=== PATIENT | male | born 1935 | race Caucasian/White ===

== ENCOUNTER 2019-11-01 07:42 | Outpatient (CLI) | payer MEDICARE, OTHER, SELFPAY ==
[2019-11-01 08:43] LABS: Blood Urea Nitrogen 26 mg/dL (9-20); Calcium 9.2 mg/dL (8.4-10.2); Carbon Dioxide 27 mmol/L (22-30); Chloride 95 mmol/L (98-107); Estimated Glomerular Filt Rate > 60; Glucose 329 mg/dL (75-110); Potassium 5.1 mmol/L (3.4-5.0); Sodium 133 mmol/L (137-145)
== END 2019-11-01 07:43 | disposition home or self-care (01) ==
PROVIDERS: PCP Internal Medicine; Visit Provider Internal Medicine Cardiovascular Disease
DX: Z79.899 Other long term (current) drug therapy (principal)
CPT/HCPCS: 36415; 80048

== ENCOUNTER 2019-11-08 07:51 | Outpatient (CLI) | payer MEDICARE, OTHER, SELFPAY ==
[2019-11-08 08:33] LABS: Blood Urea Nitrogen 23 mg/dL (9-20); Calcium 9.6 mg/dL (8.4-10.2); Carbon Dioxide 28 mmol/L (22-30); Chloride 97 mmol/L (98-107); Estimated Glomerular Filt Rate > 60; Glucose 79 mg/dL (75-110); Potassium 4.3 mmol/L (3.4-5.0); Sodium 134 mmol/L (137-145)
== END 2019-11-08 07:52 | disposition home or self-care (01) ==
PROVIDERS: PCP Internal Medicine; Visit Provider Internal Medicine Cardiovascular Disease
DX: I10 Essential (primary) hypertension (principal)
CPT/HCPCS: 36415; 80048

== ENCOUNTER 2020-02-01 10:43 | Outpatient (CLI) | payer MEDICARE, OTHER, SELFPAY ==
[2020-02-01 11:17] LABS: Potassium 4.5 mmol/L (3.4-5.0)
[2020-02-01 11:37] LABS: Blood Urea Nitrogen 24 mg/dL (9-20); Calcium 9.4 mg/dL (8.4-10.2); Carbon Dioxide 29 mmol/L (22-30); Chloride 103 mmol/L (98-107); Estimated Glomerular Filt Rate > 60; Glucose 70 mg/dL (75-110); Sodium 139 mmol/L (137-145)
== END 2020-02-01 10:44 | disposition home or self-care (01) ==
PROVIDERS: PCP Internal Medicine; Visit Provider Internal Medicine Cardiovascular Disease
DX: I44.2 Atrioventricular block, complete (principal)
CPT/HCPCS: 36415; 80048

== ENCOUNTER 2020-09-16 00:38 | Emergency (ER) | payer MEDICARE, OTHER, SELFPAY ==
--- NOTE | ~2020-09-16 | XR_ITS ---
EXAMINATION: XR chest 1V portable DATE: 09/16/2020 01:40 INDICATION: PICC line placement TECHNIQUE: frontal view of the chest was obtained. COMPARISON: Chest radiograph and CT dated 02/16/2018 FINDINGS: Right internal jugular central venous catheter with distal tip at the midsuperior vena cava. Chronic elevation of the left hemidiaphragm. Skin folds project over the bilateral central lungs. Calcified p leural plaque at the left apex and medial midlung zone. No other airspace opacities, pulmonary edema, pleural effusion or pneumothorax. Cardiomegaly. Median sternotomy wires and mediastinal surgical cli ps are seen, likely from prior coronary artery bypass grafting. Left pectoral implantable cardiac mon itor. IMPRESSION: 1. No acute cardiopulmonary disease. 2. Left-sided calcified pleural plaques in the mid and upper lung zone and chronically elevated left hemidiaphragm. Reviewed, dictated and finalized at location A. VISION SERVICE ENGINEER IMPRESSION: 1. No acute cardiopulmonary disease. 2. 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
[2020-09-16 01:02] VITALS: BP 126/66; PULSE 81; RESP 16; TEMP 36.8; O2SAT 100
--- NOTE | 2020-09-16 01:03 | ED.GENADULT ---
HPI - General Adult General Chief complaint: Unspecified Stated complaint: Pulled on picc line Time Seen by Provider: 09/16/20 01:03 Source: patient and family Mode of arrival: ambulatory Limitations: no limitations History of Present Illness HPI narrative: Patient is an 85-year-old who presents for evaluation of possible PICC line malfunction. Patient reportedly was drinking this evening when he started to pull on the PICC line per his daughter. The daughter was concerned he may be dislodged the PICC line. The time of assessment, the dressing is intact. There are no sutures missing. The line is flushed and appears to be in appropriate position. Patient is reporting some mild pain at the skin site. No chest pain or shortness of breath. No redness around the site. Pt with recent admission to [facility] for skull based ear infection, discharged home for IV antibiotics. PICC line was placed 09/12/20. Related Data Home Medications Medication Instructions Recorded Confirmed Nitrostat 08/29/19 amlodipine 08/29/19 atenolol 08/29/19 atorvastatin 08/29/19 insulin lispro protamin-lispro SUBCUT 08/29/19 [Humalog Mix 75-25(U-100)Insuln] isosorbide mononitrate mg PO 08/29/19 ramipril 5 mg PO DAILY 08/29/19 08/29/19 Allergies Allergy/AdvReac Type Severity Reaction Status Date / Time No Known Allergies Allergy Unverified 09/05/18 09:09 Review of Systems Review of Systems: Narrative: CONSTITUTIONAL: Denies fever CARDIOVASCULAR: Denies chest pain RESPIRATORY: Denies cough or dyspnea. GASTROINTESTINAL: Denies abdominal pain SKIN: Denies rash MUSCULOSKELETAL: Denies back pain NEUROLOGIC: Denies headache Exam Narrative: Exam Narrative: GENERAL: Awake, alert, conversant HEAD: Normocephalic, atraumatic. EYES: PERRLA and EOMI. ENT: Nares clear, no rhinorrhea or epistaxis. Mucous membranes moist. NECK: Supple. CHEST: No respiratory distress, breathing even and non labored, PICC line in place right subclavian chest wall, no crepitus, no ecchymosis, no bleeding, sutures in place HEART: Regular rate, sinus rhythm ABDOMEN:Non distended, non tender EXTREMITIES: Normal range of motion. No edema. SKIN: Warm, dry, no rash. NEURO:No focal deficits. Alert and oriented x3 Course Vital Signs Vital signs: Vital Signs Temperature 36.8 C 09/16/20 01:02 Pulse Rate 81 09/16/20 01:02 Respiratory Rate 16 09/16/20 01:02 Blood Pressure 126/66 09/16/20 01:02 Pulse Oximetry 100 09/16/20 01:02 Temperature 36.8 C 09/16/20 01:02 Pulse Rate 81 09/16/20 01:02 Respiratory Rate 16 09/16/20 01:02 Blood Pressure 126/66 09/16/20 01:02 Pulse Oximetry 100 09/16/20 01:02 Medical Decision Making MDM Narrative Medical decision making narrative: Patient presenting for evaluation of possible PICC line dislodgment. At the time of assessment, ABCs are intact, vital signs are stable. Patient has no other complaints. PICC line is in place. There is no bleeding at the skin site, no sutures were were removed. We did replace the bandage. Verifed PICC line placement with a chest x-ray. Patient to be discharged home in stable condition as PICC line is flushing well, no evidence of infection surrounding the PICC line. Medical Records Medical records reviewed: Yes I reviewed the patient's medical records. Vital Signs Vital Signs: Vital Signs Temperature 36.8 C 09/16/20 01:02 Pulse Rate 81 09/16/20 01:02 Respiratory Rate 16 09/16/20 01:02 Blood Pressure 126/66 09/16/20 01:02 Pulse Oximetry 100 09/16/20 01:02 Temperature 36.8 C 09/16/20 01:02 Pulse Rate 81 09/16/20 01:02 Respiratory Rate 16 09/16/20 01:02 Blood Pressure 126/66 09/16/20 01:02 Pulse Oximetry 100 09/16/20 01:02 Imaging Data My impression: Chest x-ray: PICC line in place, no pneumothorax Discharge Plan Discharge Clinical Impression: Status post PICC central line placement Patient Disposi
--- NOTE | 2020-09-16 01:20 | PC.NURSE ---
Pt thought he pulled out his PICC line but everything is intact and flushes fine.
== END 2020-09-16 01:51 | disposition home or self-care (01) ==
PROVIDERS: Emergency Provider Emergency Medicine; PCP Internal Medicine
DX: Z45.2 Encounter for adjustment and management of vascular access device (principal)
CPT/HCPCS: 71045; 99283

== ENCOUNTER 2021-01-10 03:26 | Inpatient (IN) | payer MEDICARE, OTHER, SELFPAY ==
[2021-01-10] VITALS (32 sets, daily range): BP systolic 83–116; BP diastolic 37–85; PULSE 60–105; RESP 12–28; TEMP 35–36.6; O2SAT 86–100
--- NOTE | ~2021-01-10 | XR_ITS ---
EXAMINATION: XR lumbar spine 2-3V EXAM DATE: 01/13/2021 13:01 INDICATION: Low back pain. No known recent injury. TECHNIQUE: Lumber spine frontal, lateral, lateral L5-S1 projections for interpretation. There is no prior study for comparison. FINDINGS: There is mild to moderate loss of the disc height at T11-12, T12-L1, L1-2, L4-5 and L5-S1. Small endplate osteophytes. Mild diffuse loss of lumbar vertebral body heights. No endplate erosive c hange. Overall moderate lumbar facet arthropathy. Mild to moderate scattered aortic arteriosclerotic disease. There are cholecystectomy clips. IMPRESSION: 1. Overall moderate lumbar spondylosis. 2. No acute findings. Reviewed, dictated and finalized at location A.
--- NOTE | ~2021-01-10 | XR_ITS ---
EXAMINATION: XR chest 1V portable EXAM DATE: 01/12/2021 01:48 INDICATION: Increasing oxygen requirements. Intraventricular pacemaker. TECHNIQUE: Portable AP frontal chest x-ray was obtained. Comparison is made to prior examination from 01/10/2021. Correlation was made with CT chest 01/11/2021. FINDINGS: Intraventricular pacemaker. Sternotomy wires are present without findings to suggest sterna l dehiscence. There is a right-sided IJ venous line. Cardiomegaly. There is pulmonary vascular conges tion. Left basilar atelectasis and/or pneumonia. There is density over the left hemithorax which is most likely a skin fold, prior chest x-rays have had a similar appearance and there was no evidence o f pneumothorax on CT scan which was obtained yesterday. Small left pleural effusion superimposed on c hronic left hemidiaphragm elevation. Compared to 01/10/2021, heart size has increased, patient has developed pulmonary vascular congestion a nd left pleural effusion. Left basilar pneumonia not excludable. IMPRESSION: 1. Progression of cardiomegaly, congestive changes, development of small left pleural effusion. 2. Progression of left basilar airspace disease at least partly atelectasis. Pneumonia not excludabl e. Reviewed, dictated and finalized at location A. IMPRESSION: 1. Progression of cardiomegaly, congestive changes, development of small left pleural effusion. 2. Progression of left basilar airspace disease at least partly atelectasis. P neumonia not excludable.
--- NOTE | ~2021-01-10 | XR_ITS ---
EXAMINATION: XR chest 1V portable EXAM DATE: 01/15/2021 05:24 INDICATION: Shortness of breath. TECHNIQUE: Portable AP frontal chest x-ray was obtained. Comparison is made to prior examination from 01/14/2021. FINDINGS: Sternotomy wires are present without findings to suggest sternal dehiscence. Again there i s cardiomegaly and pulmonary vascular congestion. There is right-sided venous line in position. Again there is elevated left hemidiaphragm with adjacent atelectasis. Moderate amount of superimposed roz stinct reticulation, bibasilar pneumonia and/or edema. Left pleural plaques. Small left pleural effus ion. IMPRESSION: 1. Unchanged findings consistent with CHF exacerbation. 2. Elevated left hemidiaphragm, adjacent atelectasis. 3. Pneumonia not excludable. Reviewed, dictated and finalized at location A.
--- NOTE | ~2021-01-10 | XR_ITS ---
EXAMINATION: XR chest 1V portable DATE: 01/10/2021 04:22 INDICATION: Chest pain. TECHNIQUE: A single frontal view of the chest was obtained. COMPARISON: Chest single view 09/16/2020, chest CT 02/16/2018 FINDINGS: There are calcified pleural plaques on the left. There is chronic mild elevation of left he midiaphragm. There are mild airspace opacities in the lower lung zones. No pleural effusion or pneumo thorax. Cardiomegaly is noted. Median sternotomy wires and mediastinal surgical clips are seen, likel y from prior coronary artery bypass grafting. A right internal jugular central venous catheter is see n with tip at the superior cavoatrial junction. There is an electronic implant in left anterior chest wall. IMPRESSION: 1. Mild airspace opacities in the lower lung zones, likely atelectasis. 2. Chronic elevation of left hemidiaphragm and chronic left-sided calcified pleural plaques. 3. Cardiomegaly. Reviewed, dictated and finalized at location A. IMPRESSION: 1. Mild airspace opacities in the lower lung zones, likely atelectasis. 2. Chronic elevation of left hemidiaphragm and chronic left-sided calcified ple ural plaques. 3. Cardiomegaly.
--- NOTE | ~2021-01-10 | XR_ITS ---
EXAMINATION: XR chest 1V portable EXAM DATE: 01/14/2021 07:31 INDICATION: Shortness of breath. TECHNIQUE: Portable AP frontal chest x-ray was obtained. Comparison is made to prior examination from 01/13/2021. FINDINGS: Again there is cardiomegaly and pulmonary vascular congestion. There is right-sided venous line in position. Again there is elevated left hemidiaphragm with adjacent atelectasis. Additional bi basilar pneumonia and/or edema. Left pleural plaques. Possible small pleural effusions. IMPRESSION: 1. Persistent findings consistent with CHF exacerbation. 2. Elevated left hemidiaphragm, adjacent atelectasis. 3. Pneumonia not excludable. Reviewed, dictated and finalized at location A.
--- NOTE | ~2021-01-10 | CT_ITS ---
EXAMINATION: CT diagnostic chest wo con EXAM DATE: 01/11/2021 13:32 INDICATION: Status post endoscopy and colonoscopy. History osteomyelitis. Right ear infection. Right- sided chest pain radiating to neck. TECHNIQUE: Spiral CT of the chest without contrast. Axial, coronal and sagittal images were reviewe d. Coronal maximum intensity pixel images of chest reviewed. The dose-length product (DLP) for this examination was 305.28 mGy-cm. The exposure was tailored according to patient size (auto mA exposur e control), and iterative reconstruction (ASIR) was used as additional dose reduction technique. Comp arison is made to prior examination from 02/16/2018. FINDINGS: No mediastinal emphysema or upper abdominal free intraperitoneal gas. There is a right-side d subclavian venous line. Mild emphysema. Bibasilar airspace disease, appearance most consistent with atelectasis but could have superimposed pneumonia. There is cardiomegaly. There are trace bilateral pleural effusions. There is trace perihepatic ascites. Band of calcification along the right pleura from the apex extending inferiorly. There is no mediastinal, hilar or axillary lymphadenopathy. The re is no pneumothorax. There are sternotomy wires, and cardiac/coronary surgical changes. Correlate with prior history. Upper abdomen is unremarkable. No acute fractures identified. Compared to p revious examination, basilar airspace disease appears to be acute, effusions and ascites have develop ed, and the heart is larger. Other findings appear stable. IMPRESSION: 1. Patchy bibasilar dependent atelectasis and possibly superimposed pneumonia. Clinical correlation. 2. Cardiomegaly. Trace pleural effusions and perihepatic ascites. Reviewed, dictated and finalized at location A.
--- NOTE | ~2021-01-10 | XR_ITS ---
EXAMINATION: XR barium swallow modified EXAM DATE: 01/14/2021 08:35 INDICATION: Coughing when eating/drinking. Dysphagia. TECHNIQUE: Modified barium esophagram was performed by myself to administered fluoroscopy, in conjun ction with speech pathologist who administered barium in varying consistencies as per speech patholog ist documentation. This was recorded on tape. Pulsed dose reduction fluoroscopy was used with fluor oscopic time of 2.4 minutes. A total of 1 images obtained for the exam. The DAP for this procedure was 1.7 Gycm2. FINDINGS: Oral stage: Difficulty masticating solids. Pharyngeal phase: Reduced laryngeal elevation, tongue base retraction. Vallecular residual. Laryngeal penetration: Demonstrated. Aspiration: Trace. Laryngeal sensitivity: Inconsistent. IMPRESSION: Oral feedings recommended with limitations as per speech pathologist. Please refer to dora garcia pathologist findings and specific feeding recommendations. Reviewed, dictated and finalized at location A. IMPRESSION: Oral feedings recommended with limitations as per speech pathologis t. Please refer to speech pathologist findings and specific feeding recommend ations.
--- NOTE | ~2021-01-10 | CT_ITS ---
EXAMINATION: CT cervical spine wo con DATE: 01/11/2021 13:32 INDICATION: Neck pain. Left shoulder pain. TECHNIQUE: Computed tomography (CT) of the cervical spine was performed without intravenous contrast. Automated exposure control and iterative reconstruction technique were employed. The dose-length pro duct was 418.91 mGy-cm. COMPARISON: None FINDINGS: There is mild emphysema. There are calcified pleural plaques on the left. There are changes of left mastoidectomy. There is a left mastoid effusion. There is a small right mastoid effusion. Th ere is 5 degrees levocurvature of cervical spine. There is 2 mm anterolisthesis of C7 on T1. Vertebra l body heights are normal. There is severely decreased disc height from C3-C4 through C7-T1. There is interbody fusion at C3-C4. There is mildly decreased disc height at C2-C3. The following disc levels are specifically discussed: C2-C3: There is mild bilateral uncovertebral joint osteoarthritis. There is severe right and moderate left facet joint osteoarthritis. There is mild right neural foraminal stenosis. There is mild centra l canal stenosis. C3-C4: There is ankylosis of the uncovertebral joints with severe hypertrophy. There is ankylosis of the right facet joint with moderate hypertrophy. There is moderate left facet joint osteoarthritis. T here is moderate bilateral neural foraminal stenosis. There is mild central canal stenosis. C4-C5: There is severe bilateral uncovertebral joint osteoarthritis. There is severe bilateral facet joint osteoarthritis. There is moderate right and mild left neural foraminal stenosis. There is mild central canal stenosis. C5-C6: There is severe bilateral uncovertebral joint osteoarthritis. There is severe right and modera te left facet joint osteoarthritis. There is moderate bilateral neural foraminal stenosis. There is m ild central canal stenosis. C6-C7: There is severe bilateral uncovertebral joint osteoarthritis. There is moderate severe left fa cet joint osteoarthritis. There is mild bilateral neural foraminal stenosis. There is mild central ca nal stenosis. C7-T1: There is severe bilateral uncovertebral joint osteoarthritis. There is severe bilateral facet joint osteoarthritis. There is mild right and moderate left neural foraminal stenosis. There is no ce ntral canal stenosis. IMPRESSION: 1. Severe cervical spondylosis. Reviewed, dictated and finalized at location A.
--- NOTE | ~2021-01-10 | US_ITS ---
EXAMINATION: US renal BI EXAM DATE: 01/11/2021 13:47 INDICATION: Acute renal failure. TECHNIQUE: Multiple grayscale and Doppler images of the kidneys were obtained (by a technologist who performed the scan) and subsequently reviewed. There is no prior study for comparison. FINDINGS: Right kidney: There is normal contour and echogenicity. It measures 11.1 x 4.8 x 4.5 centimeters. An echoic lesion consistent with cyst measuring 2.5 cm. There is no hydronephrosis. Left kidney: There is normal contour and echogenicity. It measures 11.0 x 4.3 x 6.0 centimeters. Th ere are no focal renal lesions identified. There is no hydronephrosis. Bladder unremarkable. Bilateral ureteral jets were confirmed in the bladder. Prostate measures approx imately 5 cm, moderately enlarged. IMPRESSION: 1. Moderate prostatomegaly. 2. No obstructive nephropathy. Reviewed, dictated and finalized at location A.
--- NOTE | 2021-01-10 03:45 | ED.GENADULT ---
HPI - General Adult General Chief complaint: Extremity Problem,Nontraumatic Stated complaint: right side neck, back and chest pain Time Seen by Provider: 01/10/21 03:27 History of Present Illness HPI narrative: Patient is an 85-year-old male who presents ER with right-sided chest pain. Reports its pressure/aching. It radiates up into his right neck and into his back. States it feels similar to pain he has had from his chronic right ear infection. He currently has a central line for cefepime fusions he receives at home. Patient has history of CABG and sees Dr. Linares at [facility]. He denies stent placement but also is unsure why he has a pacemaker. Medical history derived from medication list as patient is a poor historian. Related Data Home Medications Medication Instructions Recorded Confirmed Nitrostat 0.4 mg PRN PRN 08/29/19 amlodipine 5 mg PO DAILY 08/29/19 atenolol 25 mg PO BID 08/29/19 atorvastatin 20 mg PO DAILY 08/29/19 insulin lispro protamin-lispro SUBCUT 08/29/19 [Humalog Mix 75-25(U-100)Insuln] isosorbide mononitrate 60 mg PO DAILY 08/29/19 ramipril 5 mg PO DAILY 08/29/19 08/29/19 clopidogrel 75 mg PO DAILY 01/10/21 furosemide 20 mg PO DAILY 01/10/21 hydralazine 25 mg PO BID 01/10/21 hydrochlorothiazide 12.5 mg PO QAM 01/10/21 tamsulosin 0.4 mg PO DAILY 01/10/21 Allergies Allergy/AdvReac Type Severity Reaction Status Date / Time No Known Allergies Allergy Unverified 09/05/18 09:09 Review of Systems Review of Systems: All systems reviewed & are unremarkable except as noted in HPI and below Constitutional: Constitutional: Denies chills, Denies fever(s) and Reports weakness ENT: Denies nasal congestion and Denies sore throat Cardiovascular: Cardiovascular: Reports chest pain, Denies rapid heart rate and Reports radiating jaw, neck or arm pain Respiratory: Respiratory: Denies cough, Denies dyspnea and Denies wheezing Gastrointestinal: Gastrointestinal: Denies abdominal pain, Denies diarrhea, Reports nausea and Denies vomiting Comments: Black stools Musculoskeletal: Musculoskeletal: Denies back pain and Denies muscle cramps Neurologic: Denies syncope, Denies focal weakness and Denies numbness PMFSH Past Medical History Medical History (Updated 01/10/21 @ 06:44 by Smith Powell MD) Chronic ear infection Diabetes Hypertension Surgical History Surgical History (Updated 01/10/21 @ 03:46 by Smith Powell MD) Hx of CABG Pacemaker Comments [employer]: Dr. Linares. Exam Narrative: Exam Narrative: GENERAL: Ill-appearing, well-nourished, and in mild distress. HEAD: Normocephalic, atraumatic. EYES: PERRL and EOMI. Pale conjunctiva. Neck: Right tunneled central line. No swelling or erythema around insertion site. Nontender. ENT: Mucous membranes moist. CHEST: Clear to auscultation. No respiratory distress. HEART: Irregularly irregular rate and rhythm. Normal peripheral pulses. ABDOMEN: Soft, nontender, nondistended. EXTREMITIES: Normal range of motion. No edema. SKIN: Warm, dry, no rash, pale. NEURO: No focal deficits. Alert and oriented x3. Course Reevaluation(s) Reevaluation #1: Discussed results with patient's and daughter. Discussed treatment options including going to [facility] or staying at [facility]. Patient prefers to stay at this hospital despite having test specialist at [facility]. Patient's blood pressure continues to have her in the 90s and he has had one blood pressure at 88/61 mmHg. This is after 500 mL bolus. We will give him a 1000 mL bolus now that we know there is evidence of internal bleeding with briskly guaiac positive stool. According to daughter he was started on Plavix 2 weeks ago after going to [facility] for what they thought was a TIA. Additionally he started having dark black stools yesterday. Patient is being started on a Protonix drip. Patient continues to have right-sided chest discomfort that he rates 01/12. Date: 01/10/21 Time: 05:03 Ree
--- NOTE | 2021-01-10 03:47 | ECG_ITS ---
Measurements Intervals [place] Rate: 71 P: CT: 0 QRS: 34 QRSD: 112 T: 236 QT: 416 QTc: 454 Interpretive Statements ATRIAL FIBRILLATION VENTRICULAR PREMATURE COMPLEXES INTRAVENTRICULAR CONDUCTION DELAY ST-T WAVE ABNORMALITY IN ANTEROLAT/INF LEADS- CONSIDER ISCHEMIA BASELINE ARTIFACT- II, V3-V6 ABNORMAL ECG Electronically Signed On 01-10-2021 7:22:26 CDT by Jon Garza D.O.
[2021-01-10 04:00] LABS: Basophils Percent Auto 0.4 % (0.2-1.2); Immature Granulocyte Percent A 0.9 % (0-0.5); Lymphocytes Absolute Auto 0.75 K/mm3 (0.9-3.2); Lymphocytes Percent Auto 6.6 % (18.3-44.2); Mean Corpuscular HGB Conc 32.9 g/dl (32-36); Mean Platelet Volume 11.2 fl (7.4-10.4); Monocytes Absolute Auto 0.7 K/mm3 (0.1-0.6); Monocytes Percent Auto 5.9 % (2.6-8.5); Neutrophils Absolute Auto 9.8 K/mm3 (1.3-6.7); Neutrophils Percent Auto 86.2 % (45.5-73.1); Platelet Count Result 175 k/mm3 (150-375); Red Blood Count 1.84 M/mm3 (4.6-6.20); Red Cell Distribution Width 15.3 % (11.5-14.5); White Blood Count 11.4 K/mm3 (4.5-10.0)
[2021-01-10] MEDS: SODIUM CHLORIDE 0.9% IV 500 ML 999 ML IV CONT (04:05)
[2021-01-10] MEDS: ASPIRIN 81 MG CHEWABLE TABLET 324 MG PO (04:05)
[2021-01-10 04:06] LABS: Hemoglobin 5.7 g/dL (14.0-18.0)
[2021-01-10] MEDS: ONDANSETRON INJ 4 MG/2 ML VIAL IV PUSH (04:06)
[2021-01-10 04:07] LABS: Hematocrit 17.3 % (42.0-52.0)
[2021-01-10 04:09] LABS: INR 1.2; Prothrombin Time 15.6 Seconds (11.1-14.7)
--- NOTE | 2021-01-10 04:09 | ECG_ITS ---
Measurements Intervals [place] Rate: 75 P: OR: 0 QRS: 60 QRSD: 109 T: 242 QT: 377 QTc: 423 Interpretive Statements ELECTRONIC VENTRICULAR PACEMAKER WITH INHIBITION UNDERLYING ATRIAL FIBRILLATION ST-T WAVE ABNORMALITY IN ANTEROLATERAL LEADS- CONSIDER ISCHEMIA NO FURTHER INTERPRETATION IS POSSIBLE ABNORMAL ECG Electronically Signed On 01-10-2021 7:24:28 CDT by Jon Garza D.O.
[2021-01-10 04:10] LABS: Partial Thromboplastin Time 27.6 SECONDS (22.3-36.8)
[2021-01-10 04:15] LABS: Albumin Level 3.7 g/dL (3.5-5.1); Alkaline Phosphatase 53 U/L (38-126); Anion Gap 14 mmol/L (8-16); Aspartate Amino Transferase 24 U/L (17-59); Bilirubin,Total 0.3 mg/dL (0.2-1.3); Blood Urea Nitrogen 96 mg/dL (9-20); Calcium 8.9 mg/dL (8.4-10.2); Carbon Dioxide 16 mmol/L (22-30); Chloride 110 mmol/L (98-107); Estimated Glomerular Filt Rate 53; Glucose 254 mg/dL (75-110); Potassium 5.5 mmol/L (3.4-5.0); Sodium 140 mmol/L (137-145)
[2021-01-10 04:24] LABS: Alanine Aminotransferase 22 U/L (4-50); Troponin I 0.023 ng/mL (0.000-0.034)
[2021-01-10] MEDS: PANTOPRAZOLE SODIUM IV 40 MG VIAL 80 MG IV PUSH (05:04)
[2021-01-10] MEDS: SODIUM CHLORIDE 0.9% IV 1,000 ML 999 ML IV CONT (05:06)
[2021-01-10] MEDS: fentaNYL CITRATE INJ (*CRX) 100 MCG/2 ML VIAL 50 MCG IV PUSH (05:06)
[2021-01-10] MEDS: TUBING, BLOOD PLUM PUMP TUBING 1 EACH XX ×3 (06:15→17:26)
[2021-01-10] MEDS: SODIUM CHLORIDE 0.9% IV 250 ML 30 ML IV CONT ×2 (06:15→17:31)
--- NOTE | 2021-01-10 06:30 | PC.NURSE ---
Report to [facility] transfer center
--- NOTE | 2021-01-10 07:33 | PC.NURSE ---
Report given by Mya WHITE, and assumed care of this pt at this time. Attempted to call report to IMU but was unsuccessful. Pt resting in bed, VSS.
[2021-01-10 07:45] LABS: Troponin I 0.056 ng/mL (0.000-0.034)
[2021-01-10] MEDS: MORPHINE SULFATE (*CRX) 4 MG/ML INJ IV PUSH ×2 (07:46→11:07)
[2021-01-10 10:16] LABS: Glucose Point of Care 277 (65-105)
--- NOTE | 2021-01-10 10:56 | ADMGEN ---
This patient, Samuel Elmore, was admitted to IMU Room 214-01. Patient/family oriented to hospital policies and general routines including ID bracelet, bed and alarms, visiting hours, pain management, procedures, bathroom and other care routines, personal items, smoking policy, room service/diet, and visiting hours. Information on how to activate the Rapid Response Team has been discussed. Patient/Family are encouraged to report perceived risks to care and to ask questions if they do not understand what they are told or what they should do.
--- NOTE | 2021-01-10 11:30 | PM.CNCAR ---
Assessment and Plan Assessment and plan (1) Upper gastrointestinal bleeding: Code(s): K92.2 - Gastrointestinal hemorrhage, unspecified Status: Acute Assessment and Plan: Patient takes aspirin Plavix at home. Hemoglobin on admission 5.7 He reports melena Getting 1 unit of blood transfusion. Await GI evaluation. (2) Elevated troponin: Code(s): R77.8 - Other specified abnormalities of plasma proteins Status: Acute Assessment and Plan: This is demand ischemia from severe anemia. There is ST depression in EKG but again this is most likely secondary to severe anemia. Await GI input. Not ACS. (3) Pacemaker: Code(s): Z95.0 - Presence of cardiac pacemaker Status: Acute Assessment and Plan: Patient does have a history of intracardiac pacemaker. It is functioning well. (4) Hx of CABG: Code(s): Z95.1 - Presence of aortocoronary bypass graft Status: Acute Assessment and Plan: Patient does have a history of CABG and follows a [facility]. History of Present Illness History of Present Illness Consult date/time: date of service :01/10/21 11:30 This is 85-year-old patient with past medical history of CABG many years ago, intracardiac pacemaker, hypertension, diabetes who follows up [facility] presents to the hospital with right chest pain. He states he does not have stents. His hemoglobin on admission 5.7. He takes aspirin and Plavix at home. He states that a couple days ago he passed black tarry stoool. He states he was hurting from the right ear, right face, right side of the chest and right-sided abdomen as well as the right side of the groin. Intermittent nonradiating relieving factor is any increased fatigability but denies shortness of breath. Patient is very poor historian and hard of hearing White cell count 11.9 kg, BUN 96, creatinine 1.3, troponin 0.056 and increased to 1.6, chest x-ray reviewed and analyzed myself shows some cardiomegaly, evidence of open heart surgery, some atelectasis lower lobes. EKG reviewed the analyze myself shows ventricular pacing, some P-waves seen and then it looks like there is junctional rhythm. I doubt it is atrial fibrillation. Reason For Visit: upper gi bleed,anemia,chest pain Review of Systems Constitutional: Constitutional: Denies chills, Denies fever(s) and Denies poor appetite Eyes: Eyes: Denies eye discharge, Denies loss of vision, Denies eye pain and Denies photophobia ENT: Denies dizziness, Denies epistaxis, Denies nasal congestion, Reports neck pain and Denies sore throat Cardiovascular: Cardiovascular: Denies syncope, Denies pedal edema, Denies leg edema, Denies palpitations, Denies dyspnea, Denies dyspnea on exertion and Denies orthopnea Respiratory: Respiratory: Denies cough, Denies dyspnea, Denies dyspnea on exertion and Denies wheezing Gastrointestinal: Gastrointestinal: Denies abdominal pain, Reports melena, Denies diarrhea, Denies nausea and Denies vomiting Genitourinary: Genitourinary: Denies hematuria, Denies genital lesions and Denies dysuria Musculoskeletal: Musculoskeletal: Denies arthralgias, Denies joint swelling and Denies numbness Integumentary/Breasts: Skin/Breast: Denies pruritus and Denies rash Neurologic: Denies dizziness, Denies syncope, Denies loss of vision and Denies numbness Psychiatric: Psychiatric: Denies anxiety and Denies depression Endocrine: Endocrine: Denies cold intolerance, Denies heat intolerance and Denies palpitations Hematologic/Lymphatic: Hematologic/Lymphatic: Denies easy bleeding and Denies easy bruising Allergic/Immunologic: Allergic/Immunologic: Denies urticaria and Denies wheezing PMFSH Past Medical History Medical History Chronic ear infection Diabetes Hypertension Surgical History Surgical History Hx of CABG Pacemaker Social
[2021-01-10 12:02] LABS: Glucose Point of Care 283 (65-105)
[2021-01-10 15:33] LABS: Hematocrit 23.2 % (42.0-52.0); Hemoglobin 7.8 g/dL (14.0-18.0); Mean Corpuscular HGB Conc 33.6 g/dl (32-36); Mean Corpuscular Hemoglobin 30.5 pg (26-34); Mean Corpuscular Volume 90.6 fl (80-100); Mean Platelet Volume 11.6 fl (7.4-10.4); Platelet Count Result 129 k/mm3 (150-375); Red Blood Count 2.56 M/mm3 (4.6-6.20); Red Cell Distribution Width 16.3 % (11.5-14.5); White Blood Count 15.5 K/mm3 (4.5-10.0)
--- NOTE | 2021-01-10 15:49 | PM.IMHP ---
H&P: HPI History of Present Illness Date/Time: 01/10/21 15:49 85-year-old male who presents ER with right-sided chest pain. Poor historian explains to be about pain his right shoulder and abdomen, pt is found to be severe anemia hb is 5 on admission, pt has been having rectal bleeding. Pt is going for colonscopy under GI Pt has history of chronic right ear infection. He currently has a central line for cefepime fusions he receives at home. Patient has history of CABG and sees Dr. Linares at [facility]. Pt has history of pacemaker, DM amd HTN. Pt prefers to stay in [place] than go to [facility]. Pt is sp 2 units of blood, Hb has improved to 7. Pts Bp still slightly low pt is on iv fluids, Iv protonix sp blood transfusion. Pt to hold his ASA and plavix for now. Pt had some shoulder pains and elevated troponin cardiology was consulted. see note. Chief Complaint: Chest pain Review of Systems Review of Systems: All systems reviewed & are unremarkable except as noted in HPI and below PMFSH Past Medical History Medical History Chronic ear infection Diabetes Hypertension Surgical History Surgical History Hx of CABG Pacemaker Social History Social History Smoking packs per day: 1 Smoking cigarettes per day: 20.0 Smoking status: Former smoker Smoking end date: 01/08/21 Gender identity (if verbalized by the patient): Male Spiritual care concerns: No Meds Home Medications and Allergies Home Medications Medication Instructions Recorded Confirmed Type amlodipine 10 mg PO DAILY 08/29/19 01/10/21 History atorvastatin 20 mg PO QPM 08/29/19 01/10/21 History insulin lispro protamin-lispro 16 unit SUBCUT QAM 08/29/19 01/10/21 History [Humalog Mix 75-25(U-100)Insuln] isosorbide mononitrate 60 mg PO DAILY 08/29/19 01/10/21 History aspirin 81 mg PO QPM 01/10/21 01/10/21 History cefepime 2 g IV Q12H 01/10/21 01/10/21 History clopidogrel 75 mg PO DAILY 01/10/21 01/10/21 History furosemide 20 mg PO DAILY 01/10/21 01/10/21 History hydralazine 25 mg PO BID 01/10/21 01/10/21 History hydrochlorothiazide 12.5 mg PO QAM 01/10/21 01/10/21 History insulin lispro protamin-lispro 10 unit SUBCUT QPM 01/10/21 01/10/21 History [Humalog Mix 75-25(U-100)Insuln] metoprolol tartrate 25 mg PO BID 01/10/21 01/10/21 History nitroglycerin 0.4 mg SUBLINGUAL PRN PRN 01/10/21 01/10/21 History polyethylene glycol 3350 [Miralax] 17 g PO DAILY PRN 01/10/21 01/10/21 History Allergies Allergy/AdvReac Type Severity Reaction Status Date / Time No Known Allergies Allergy Verified 01/10/21 10:57 Vital Signs Vital Signs - 24 hr 01/10/21 03:25 01/10/21 03:34 01/10/21 04:00 Temperature Pulse Rate 73 75 82 Respiratory Rate 20 27 H 16 Blood Pressure 98/55 L 98/55 L 97/70 L Pulse Oximetry 100 100 100 01/10/21 04:01 01/10/21 04:31 01/10/21 05:01 Temperature Pulse Rate 99 74 83 Respiratory Rate 24 H 23 H 24 H Blood Pressure 115/48 L 92/51 L 88/61 L Pulse Oximetry 100 100 01/10/21 05:08 01/10/21 05:16 01/10/21 05:31 Temperature Pulse Rate 81 72 73 Respiratory Rate 24 H 18 28 H Blood Pressure 100/46 L 103/52 L 96/38 L Pulse Oximetry 100 100 86 L 01/10/21 05:46 01/10/21 06:01 01/10/21 06:06 Temperature Pulse Rate 68 79 79 Respiratory Rate 26 H 21 H 23 H Blood Pressure 89/44 L 103/48 L 105/56 L Pulse Oximetry 100 100 01/10/21 06:13 01/10/21 06:16 01/10/21 06:30 Temperature 36.5 C 36.6 C Pulse Rate 75 66 66 Respiratory Rate 21 H 22 H 20 Blood Pressure 105/56 L 99/51 L 113/85 Pulse Oximetry 100 99 100 01/10/21 06:31 01/10/21 06:35 01/10/21 06:46 Temperature Pulse Rate 72 72 72 Respiratory Rate 25 H 27 H 24 H Blood Pressure 96/46 L 113/85 116/47 L Pulse Oximetry 94 95 99 01/10/21 07:47 01/10/21 08:00 01/10/21 10:00 Temperat
--- NOTE | 2021-01-10 16:25 | WPDGICN ---
Assessment and Plan Assessment and plan (1) Acute blood loss anemia: Code(s): D62 - Acute posthemorrhagic anemia Status: Acute Assessment and Plan: admitted to floor, started on iv protonix getting blood transfusion will proceed with egd and colonoscopy to assess for source of bleeding holding plavix and aspirin (2) GIB (gastrointestinal bleeding): Code(s): K92.2 - Gastrointestinal hemorrhage, unspecified Status: Acute Assessment and Plan: scopes tomorrow (3) Elevated troponin: Code(s): R77.8 - Other specified abnormalities of plasma proteins Status: Acute Assessment and Plan: cardiology evaluation, probably demand ischemia (4) Chest pain: Code(s): R07.9 - Chest pain, unspecified Status: Acute (5) Pacemaker: Code(s): Z95.0 - Presence of cardiac pacemaker Status: Acute GI Consult Note Consult date/time: 01/10/21 16:25 Reason for consult: GIB, acute blood loss anemia HPI: Samuel Elmore is a 85 year old male with history of CABG, pacemaker, hypertension, diabetes using plavix and aspirin who is poor historian and came here because pain in his right shoulder and abdomen. He was found to have anemia with hemoglobin 5.7, apparently report of black tarry stool and FOBT positive in ER. He was admitted and given blood transfusio. Other blood work showed white cell count 11.9 kg, BUN 96, creatinine 1.3, troponin 0.056 and increased to 1.6, chest x-ray reviewed with cardiomegaly, evidence of open heart surgery, some atelectasis lower lobes. He says that had colonoscopy but years ago. Review of Systems Constitutional: Constitutional: Reports fatigue Eyes: Eyes: Denies blurry vision ENT: Reports system reviewed and no additional complaints, except as documented Cardiovascular: Cardiovascular: Reports chest pain Respiratory: Respiratory: Denies cough Gastrointestinal: Gastrointestinal: Reports melena and Denies nausea Genitourinary: Genitourinary: Denies dysuria Musculoskeletal: Musculoskeletal: Denies neck pain Integumentary/Breasts: Skin/Breast: Denies dry skin Neurologic: Reports system reviewed and no additional complaints, except as documented Psychiatric: Psychiatric: Reports [facility] Past Medical History Medical History Chronic ear infection Diabetes Hypertension Surgical History Surgical History Hx of CABG Pacemaker Social History Social History Smoking packs per day: 1 Smoking cigarettes per day: 20.0 Smoking status: Former smoker Smoking end date: 01/08/21 Gender identity (if verbalized by the patient): Male Spiritual care concerns: No Meds Home Medications and Allergies Home Medications Medication Instructions Recorded Confirmed Type amlodipine 10 mg PO DAILY 08/29/19 01/10/21 History atorvastatin 20 mg PO QPM 08/29/19 01/10/21 History insulin lispro protamin-lispro 16 unit SUBCUT QAM 08/29/19 01/10/21 History [Humalog Mix 75-25(U-100)Insuln] isosorbide mononitrate 60 mg PO DAILY 08/29/19 01/10/21 History aspirin 81 mg PO QPM 01/10/21 01/10/21 History cefepime 2 g IV Q12H 01/10/21 01/10/21 History clopidogrel 75 mg PO DAILY 01/10/21 01/10/21 History furosemide 20 mg PO DAILY 01/10/21 01/10/21 History hydralazine 25 mg PO BID 01/10/21 01/10/21 History hydrochlorothiazide 12.5 mg PO QAM 01/10/21 01/10/21 History insulin lispro protamin-lispro 10 unit SUBCUT QPM 01/10/21 01/10/21 History [Humalog Mix 75-25(U-100)Insuln] metoprolol tartrate 25 mg PO BID 01/10/21 01/10/21 History nitroglycerin 0.4 mg SUBLINGUAL PRN PRN 01/10/21 01/10/21 History polyethylene glycol 3350 [Miralax] 17 g PO DAILY PRN 01/10/21 01/10/21 History Allergies Allergy/AdvReac Type Severity Reaction Status Date / Time No Known Allergies Allerg
[2021-01-10 16:56] LABS: Glucose Point of Care 300 (65-105)
[2021-01-10] MEDS: INSULIN ASPART (*BKC) 100 UNITS/ML SUB-Q (17:13)
[2021-01-10] MEDS: BISACODYL 5 MG TABLET EC 20 MG PO (17:25)
[2021-01-10] MEDS: SODIUM POLYSTYRENE SULFONONATE 15 GM/60 ML BTL PO (17:25)
[2021-01-10] MEDS: CENTRAL LINE FLUSH 10 ML IV PUSH ×2 (17:26→20:22)
[2021-01-10] MEDS: polyethylene glycoL 3350 238 GM BOTTLE PO (17:27)
[2021-01-10] MEDS: PANTOPRAZOLE SODIUM IV 40 MG VIAL IV PUSH (20:22)
[2021-01-10 22:00] LABS: Hemoglobin 8.7 g/dL (14.0-18.0)
[2021-01-10 22:18] LABS: Anion Gap 9 mmol/L (8-16); Blood Urea Nitrogen 93 mg/dL (9-20); Calcium 8.6 mg/dL (8.4-10.2); Carbon Dioxide 18 mmol/L (22-30); Chloride 112 mmol/L (98-107); Estimated CRCL calculation 26 ml/min; Estimated Glomerular Filt Rate 39; Glucose 121 mg/dL (75-110); Potassium 4.9 mmol/L (3.4-5.0); Sodium 139 mmol/L (137-145)
[2021-01-11] VITALS (23 sets, daily range): BP systolic 103–127; BP diastolic 44–58; PULSE 61–69; RESP 15–34; TEMP 35.9–36.5; O2SAT 87–100
[2021-01-11 00:24] LABS: Glucose Point of Care 106 (65-105)
[2021-01-11] MEDS: SODIUM CHLORIDE 0.9% IV 1,000 ML 50 ML IV CONT (01:27)
[2021-01-11 04:44] LABS: Hematocrit 25.1 % (42.0-52.0); Hemoglobin 8.5 g/dL (14.0-18.0); Mean Corpuscular HGB Conc 33.9 g/dl (32-36); Mean Corpuscular Hemoglobin 30.8 pg (26-34); Mean Corpuscular Volume 90.9 fl (80-100); Mean Platelet Volume 11.3 fl (7.4-10.4); Platelet Count Result 103 k/mm3 (150-375); Red Blood Count 2.76 M/mm3 (4.6-6.20); Red Cell Distribution Width 16.3 % (11.5-14.5); White Blood Count 14.5 K/mm3 (4.5-10.0)
[2021-01-11 05:01] LABS: Anion Gap 7 mmol/L (8-16); Blood Urea Nitrogen 93 mg/dL (9-20); Calcium 8.5 mg/dL (8.4-10.2); Carbon Dioxide 19 mmol/L (22-30); Chloride 111 mmol/L (98-107); Estimated CRCL calculation 28 ml/min; Estimated Glomerular Filt Rate 41; Glucose 89 mg/dL (75-110); Potassium 4.7 mmol/L (3.4-5.0); Sodium 137 mmol/L (137-145)
[2021-01-11] MEDS: MAGNESIUM CITRATE 300 ML BTL PO (05:09)
[2021-01-11] MEDS: CENTRAL LINE FLUSH 10 ML IV PUSH ×3 (05:16→20:14)
[2021-01-11 06:12] LABS: Glucose Point of Care 103 (65-105)
--- NOTE | 2021-01-11 08:22 | WPDCDIQUERY2 ---
CDI Query Clarification Request -Documentation states pt has a PICC line and receiving Cefepime prior to arrival -ER nurse documented that pt was getting home antibiotics for pseudomonas -Cefepime continued here Please clarify diagnosis/infection site that Cefepime is being used to treat. <Elli Berry RN - Last Filed: 01/11/21 08:26> He currently has a central line for cefepime fusions he receives at home. 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 <Abigail Jung MD - Last Filed: 01/14/21 08:08>
[2021-01-11] MEDS: PANTOPRAZOLE SODIUM IV 40 MG VIAL IV PUSH ×2 (08:56→20:14)
[2021-01-11] MEDS: MORPHINE SULFATE (*CRX) 4 MG/ML INJ IV PUSH (09:07)
[2021-01-11 09:16] LABS: Glucose Point of Care 108 (65-105)
[2021-01-11 10:43] LABS: Glucose Point of Care 105 (65-105)
[2021-01-11] MEDS: LACTATED RINGERS 1,000 ML 150 ML IV CONT (10:48)
--- NOTE | 2021-01-11 10:51 | WPDANESEPPF ---
Anes - Initial Pre Proc Eval Procedure: Operation Date: 01/11/21 14:15 Proposed Procedures p Esophagogastroduodenoscopy & Colonoscopy - Librado Espana MD Date/Time: 01/11/21 10:51 Surgeon: Alie Teague DO Pre Op Diagnosis: upper gi bleed,anemia,chest pain Patient Data Age: 85 Gender: M Height: 5 ft 6 in Weight: 66.8 kg Last Vital Signs Temp 35.9 C L 01/11/21 10:44 Pulse 66 01/11/21 10:44 Resp 18 01/11/21 10:44 BP 112/46 L 01/11/21 10:44 Pulse Ox 92 01/11/21 10:44 Allergies Allergy/AdvReac Type Severity Reaction Status Date / Time No Known Allergies Allergy Verified 01/10/21 10:57 Home Medications Medication Instructions Recorded Confirmed Type amlodipine 10 mg PO DAILY 08/29/19 01/10/21 History atorvastatin 20 mg PO QPM 08/29/19 01/10/21 History insulin lispro protamin-lispro 16 unit SUBCUT QAM 08/29/19 01/10/21 History [Humalog Mix 75-25(U-100)Insuln] isosorbide mononitrate 60 mg PO DAILY 08/29/19 01/10/21 History aspirin 81 mg PO QPM 01/10/21 01/10/21 History cefepime 2 g IV Q12H 01/10/21 01/10/21 History clopidogrel 75 mg PO DAILY 01/10/21 01/10/21 History furosemide 20 mg PO DAILY 01/10/21 01/10/21 History hydralazine 25 mg PO BID 01/10/21 01/10/21 History hydrochlorothiazide 12.5 mg PO QAM 01/10/21 01/10/21 History insulin lispro protamin-lispro 10 unit SUBCUT QPM 01/10/21 01/10/21 History [Humalog Mix 75-25(U-100)Insuln] metoprolol tartrate 25 mg PO BID 01/10/21 01/10/21 History nitroglycerin 0.4 mg SUBLINGUAL PRN PRN 01/10/21 01/10/21 History polyethylene glycol 3350 [Miralax] 17 g PO DAILY PRN 01/10/21 01/10/21 History Laboratory Tests 01/10/21 01/10/21 01/10/21 04:16 11:36 15:19 WBC 15.5 K/mm3 H K/mm3 (4.5-10.0) RBC 2.56 M/mm3 L M/mm3 (4.6-6.20) Hgb 7.8 g/dL L g/dL (14.0-18.0) Hct 23.2 % L % (42.0-52.0) MCV 90.6 fl fl (80-100) MCH 30.5 pg pg (26-34) MCHC 33.6 g/dl g/dl (32-36) RDW 16.3 % H % (11.5-14.5) Plt Count 129 k/mm3 L k/mm3 (150-375) MPV 11.6 fl H fl (7.4-10.4) Sodium Potassium Chloride Carbon Dioxide Anion Gap BUN Creatinine Estim Creat Clear Calc Estimated GFR Glucose POC Capillary Glucose 283 mg/dl H mg/dl (65-105) Calcium Blood Type O Positive Antibody Screen Negative Crossmatch See Detail 01/10/21 01/10/21 01/10/21 16:15 21:53 21:53 WBC RBC Hgb 8.7 g/dL L g/dL (14.0-18.0) Hct 26.0 % L % (42.0-52.0) MCV MCH MCHC RDW Plt Count MPV Sodium 139 mmol/L mmol/L (137-145) Potassium 4.9 mmol/L mmol/L (3.4-5.0) Chloride 112 mmol/L H mmol/L (98-107) Carbon Dioxide 18 mmol/L L mmol/L (22-30) Anion Gap 9 mmol/L mmol/L (8-16) BUN 93 mg/dL H mg/dL (9-20) Creatinine 1.70 mg/dL H mg/dL (0.7-1.3) Estim Creat Clear Calc 26 ml/min ml/min Estimated GFR 39 L (59 - ) Glucose 121 mg/dL H mg/dL (75-110) POC Capillary Glucose 300 mg/dl H mg/dl (65-105) Calcium 8.6 mg/dL mg/dL (8.4-10.2) Blood Type Antibody Screen Crossmatch 01/10/21 01/11/21 01/11/21 23:44 04:32 04:32 WBC 14.5 K/mm3 H K/mm3 (4.5-10.0) RBC 2.76 M/mm3 L M/mm3 (4.6-6.20) Hgb 8.5 g/dL L g/dL (14.0-18.0) Hct 25.1 % L % (42.0-52.0) MCV 90.9 fl fl (80-100) MCH 30.8 pg pg (26-34) MCHC 33.9 g/dl g/dl (32-36) RDW 16.3 % H % (11.5-14.5) Plt Count 103 k/mm3 L k/mm3 (150-375) MPV 11.
[2021-01-11 12:01] LABS: Glucose Point of Care 121 (65-105)
--- NOTE | 2021-01-11 12:57 | PM.IMPN ---
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 [facility] (3) Elevated troponin: Code(s): R77.8 - Other specified abnormalities of plasma proteins Status: Acute Assessment and Plan: Pt troponin is elevated pt seen by cardiology seen recommendations (4) Upper gastrointestinal bleeding: Code(s): K92.2 - Gastrointestinal hemorrhage, unspecified Status: Acute Assessment and Plan: Sp Colonscopy (5) Anemia: Code(s): D64.9 - Anemia, unspecified Status: Acute Assessment and Plan: Continue to monitor hb has improved to 8 from 5 sp 3 units of blood (6) Neck pain: Code(s): M54.2 - Cervicalgia Status: Acute Assessment and Plan: CT CHEST AND CT NECK ORDERED await results pt can use Tylenol 3 and percocet for pain Subjective Date/time seen: 01/11/21 12:57 Interval history: 85-year-old male who presents ER with right-sided chest pain. Poor historian explains to be about pain his right shoulder, pt has been having rectal bleeding. Pt is going for colonscopy under GI, Colonscopy shows - Colonic polyp and internal hemorrhoids. Pt having ongoing R shoulder and neck pain CT ordered. Pt needing strong pain medication fo relief Review of Systems Review of Systems: All systems reviewed & are unremarkable except as noted in HPI and below Exam Const: General: other (frail elderly thin appearing TTP over right shoulder blade ) Chest: Chest palpation & inspection: normal inspection of the chest Resp: Effort & Inspection: normal respiratory effort Auscultation: clear to auscultation bilaterally Cardio: Jugular venous distension: no JVD Rhythm: regular rhythm Heart sounds: S1 normal heart sound present and S2 normal heart sound present GI: Auscultation: normal bowel sounds Skin: General skin exam: normal color and dry skin Neuro: Cranial nerves: Yes CN's II-XII intact bilaterally and Yes Equal, round and reactive pupils present Cognition (Neuro): abnormal cognition (due to tiredness ) Speech: Other speech findings present (Neuro) (slow ) Extrem: General: other (Generailsed weakness bilaterally ) Psych: Appearance: grossly normal Mental Status: mental status grossly normal Objective Data Vital Signs Vital Signs: Vital Signs - 24 hr 01/10/21 14:00 01/10/21 16:00 01/10/21 17:47 Temperature 36.4 C L 36.4 C L Pulse Rate 63 60 65 Respiratory Rate 12 16 Blood Pressure 103/41 L 112/42 L Pulse Oximetry 97 97 01/10/21 17:59 01/10/21 18:00 01/10/21 19:00 Temperature 36.4 C L 36.4 C L Pulse Rate 64 63 105 H Respiratory Rate 16 20 Blood Pressure 98/45 L 112/37 L Pulse Oximetry 96 96 01/10/21 20:00 01/10/21 20:05 01/11/21 00:00 Temperature 36.1 C L 36.6 C 36.1 C L Pulse Rate 61 63 65 Respiratory Rate 20 20 18 Blood Pressure 99/44 L 98/44 L 103/50 L Pulse Oximetry 96 96 96 01/11/21 02:00 01/11/21 04:00 01/11/21 06:00 Temperature 36.1 C L Pulse Rate 67 65 65 Respiratory Rate 18 Blood Pressure 103/50 L Pulse Oximetry 96 01/11/21 08:00 01/11/21 08:10 01/11/21 10:44 Temperature 36.3 C L 35.9 C L Pulse Rate 69 66 Respiratory Rate 24 H 18 Blood Pressure 113/56 L 112/46 L Pulse Oximetry 92 88 L 92 01/11/21 11:36 01/11/21 11:46 01/11/21 11:56 Temperature Pulse Rate 69 66 65 Respiratory Rate 15 16 18 Blood Pressure 116/58 L 111/46 L 127/49 L Pulse Oximetry 100 90 90 Intake/Output Intake/Output: Intake & Output 01/08/21 01/09/21 01/10/21 01/11/21 23:59 23:59 23:59 23:59 Intake Total 2650 1160 Output Total 200 950 Balance 2450 210 Meds/Results Medicatio
[2021-01-11 12:58] LABS: Glucose Point of Care 135 (65-105)
--- NOTE | 2021-01-11 13:14 | PM.PNCARD ---
Progress Note: A&P Additional Plan 85-year-old man with elevated troponin level that is not related to acute coronary syndrome. This is attributed to his severe anemia with which he presented. There is no need for cardiac workup of this during this hospitalization in my opinion. 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 We will sign off of his inpatient follow-up at this time and will therefore not plan on arranging for follow-up in our office as well. if cardiac issues arise while he is still here please do not hesitate to call Galileo Medrano MD [facility] Subjective Date/time seen: date of service:01/11/21 13:14 Interval history: Follow-up visit in this 85-year-old man with: Coronary artery disease remote history of surgical revascularization, no recent cardiac instability. Patient found to have an elevated troponin level COVID set in with severe anemia with upper GI bleeding. Endoscopic evaluation today demonstrates some gastritis and some colon polyps. Obviously the bleeding was probably related to the gastritis since he presented with lance melanotic stool. Patient insisted describing to me in great detail for about 20 minutes the significant constipation that he had leading up to this and how he was manually disimpact himself Exam Const: General: comfortable and no acute distress Other: elderly white male appears to be rather frail offers no cardiovascular complaints HENMT: Mouth: Yes dry mucous membranes Eyes: Sclera: sclerae normal Pupils: Equal, round and reactive pupils present Neck: Neck: supple and no JVD Resp: Effort & Inspection: normal respiratory effort Auscultation: clear to auscultation bilaterally Cardio: Rate: regular rate Rhythm: regular rhythm GI: GI Palp: Yes Soft to palpation Auscultation: normal bowel sounds Skin: General skin exam: normal color Extrem: General: normal to inspection Objective Data Vital Signs Vital Signs: Vital Signs - 24 hr 01/10/21 14:00 01/10/21 16:00 01/10/21 17:47 Temperature 36.4 C L 36.4 C L Pulse Rate 63 60 65 Respiratory Rate 12 16 Blood Pressure 103/41 L 112/42 L Pulse Oximetry 97 97 01/10/21 17:59 01/10/21 18:00 01/10/21 19:00 Temperature 36.4 C L 36.4 C L Pulse Rate 64 63 105 H Respiratory Rate 16 20 Blood Pressure 98/45 L 112/37 L Pulse Oximetry 96 96 01/10/21 20:00 01/10/21 20:05 01/11/21 00:00 Temperature 36.1 C L 36.6 C 36.1 C L Pulse Rate 61 63 65 Respiratory Rate 20 20 18 Blood Pressure 99/44 L 98/44 L 103/50 L Pulse Oximetry 96 96 96 01/11/21 02:00 01/11/21 04:00 01/11/21 06:00 Temperature 36.1 C L Pulse Rate 67 65 65 Respiratory Rate 18 Blood Pressure 103/50 L Pulse Oximetry 96 01/11/21 08:00 01/11/21 08:10 01/11/21 10:44 Temperature 36.3 C L 35.9 C L Pulse Rate 69 66 Respiratory Rate 24 H 18 Blood Pressure 113/56 L 112/46 L Pulse Oximetry 92 88 L 92 01/11/21 11:36 01/11/21 11:46 01/11/21 11:56 Temperature Pulse Rate 69 66 65 Respiratory Rate 15 16 18 Blood Pressure 116/58 L 111/46 L 127/49 L Pulse Oximetry 100 90 90 Intake/Output Intake/Output: Intake & Output 01/08/21 01/09/21 01/10/21 01/11/21 23:59 23:59 23:59 23:59 Intake Total 2650 1160 Output Total 200 950 Balance 2450 210 Meds/Results Medications: Active Medications Generic Name Dose Route Start Last Admin Trade Name Freq PRN Reason Stop Dose Admin Acetaminophen/Codeine Phosphate 1 tab 01/11/21 12:39 Acetaminophen/Codeine (*Crx) 300/30 Mg Tablet PO Q4H PRN Pain Rated 4-6 Atorvastatin Calcium 20 mg 01/11/21 18:00 Atorvastatin 20 Mg Tablet PO QPM JOAO Dextrose 12.5 gm 01/10/21 15:07 Dextrose 50% 25 Gm/50 Ml Syringe IV PUSH PRN PRN Hypoglycemia Protocol Glucagon 1 mg 01/10/21 15:07 Glucagon For Inj 1 Mg Vial IM PRN PRN Hypoglycemia Protocol Glucose 15 gm 01/10/21 1
--- NOTE | 2021-01-11 13:42 | PM.CNNEP ---
Assessment and Plan Assessment and plan (1) LATASHA (acute kidney injury): Code(s): N17.9 - Acute kidney failure, unspecified Status: Acute Assessment and Plan: The patient has acute kidney injury. His creatinine went from 1-1.7 in a few hours. He has not received any contrast. Does not look dehydrated. He did have low hemoglobin but I would think that his creatinine would have been elevated on admission not after admission if it was just due to the low hemoglobin and pre renal factors. Is always a possibility of other issues such as glomerulonephritis, interstitial nephritis, vascular disease, or rhabdomyolysis but I think these are all less likely. He has benign prostatic hypertrophy with significant symptoms at night. He received morphine today which may have decreased his bladder function and that may have tipped him over into retention. I asked the nurse to do a bladder scan while I was with the patient and he had 450cc in the bladder. Having urinated only 1hour ago this sounds like to much urine. So I asked her to place a Kimble catheter and consult Urology. Apparently of his on something for his prostate at home but did not mention it to the nurses on admission. So I will restart his tamsulosin and put him on finasteride as well. (2) GIB (gastrointestinal bleeding): Code(s): K92.2 - Gastrointestinal hemorrhage, unspecified Status: Acute Assessment and Plan: the patient received blood transfusions. His hemoglobin is up to 8.5. He is being observed for further bleeding. (3) Acute blood loss anemia: Code(s): D62 - Acute posthemorrhagic anemia Status: Acute Assessment and Plan: Will check iron levels (4) Hypertension: Code(s): I10 - Essential (primary) hypertension Status: Inactive Assessment and Plan: his blood pressure is under good control (5) Hyperlipidemia: Code(s): E78.5 - Hyperlipidemia, unspecified Status: Inactive Assessment and Plan: he is on atorvastatin (6) CAD (coronary artery disease): Code(s): I25.10 - Atherosclerotic heart disease of [place] coronary artery without angina pectoris Status: Inactive Assessment and Plan: he is not having any chest pain. Cardiology saw him. (7) Diabetes: Code(s): E11.9 - Type 2 diabetes mellitus without complications Status: Inactive Assessment and Plan: He is on insulin History of Present Illness Reason for Consult Consult date: 01/11/21 Chief Complaint Chief complaint: upper gi bleed,anemia,chest pain History of Present Illness Narrative: Samuel is a very pleasant 85-year-old gentleman who has multiple medical problems including coronary disease status post bypass long ago at [place]. He is followed by Dr. Winn per min for this. He also has hypertension, diabetes, benign prostatic hypertrophy. He came in the hospital because of right-sided chest pain. He was found to have rectal bleeding. He went for colonoscopy which showed a polyp and endoscopy which showed gastritis. His hemoglobin is low and so he received blood transfusions. The patient also had an elevated troponin so cardiology saw the patient and felt that that was due to the severe anemia. The patient was admitted with a normal creatinine but later on that afternoon his creatinine paris to 1.7 and is still 1.7 today. Renal consultation was requested the patient has never had kidney problems in the past that he knows of. He does not have bloody urine, foamy urine, kidney stones, bladder infections, or pain with urination. He does get up at night to urinate about every hour. He says that he never feels like his bladder empties all the way. He has significant urgency and often urinates on his way to the bathroom at night. He is making urine now. Nursing says that he made about 250 or 300cc about an hour ago. He has some pain in his neck and received
[2021-01-11 14:58] LABS: Basophils Absolute Auto 0.1 K/mm3 (0.0-0.1); Basophils Percent Auto 0.4 % (0.2-1.2); Eosinophils Percent Auto 0.2 % (0-4.4); Hematocrit 25.6 % (42.0-52.0); Hemoglobin 8.7 g/dL (14.0-18.0); Immature Granulocyte Absolute 0.17 K/mm3 (0.00-0.031); Immature Granulocyte Percent A 1.1 % (0-0.5); Lymphocytes Absolute Auto 0.62 K/mm3 (0.9-3.2); Mean Corpuscular Hemoglobin 30.5 pg (26-34); Mean Corpuscular Volume 89.8 fl (80-100); Mean Platelet Volume 11.8 fl (7.4-10.4); Monocytes Absolute Auto 0.9 K/mm3 (0.1-0.6); Monocytes Percent Auto 5.5 % (2.6-8.5); Neutrophils Absolute Auto 13.8 K/mm3 (1.3-6.7); Neutrophils Percent Auto 88.8 % (45.5-73.1); Nucleated Red Blood Cells Perc 0.3 % (0.0-0.2); Platelet Count Result 115 k/mm3 (150-375); Red Blood Count 2.85 M/mm3 (4.6-6.20); Red Cell Distribution Width 16.3 % (11.5-14.5); White Blood Count 15.6 K/mm3 (4.5-10.0)
[2021-01-11 15:06] LABS: Creatine Kinase 488 U/L (55-170)
[2021-01-11 16:03] LABS: Erythrocyte Sedimentation Rate 20 mm/hr (0-20)
--- NOTE | 2021-01-11 17:08 | WPDURCON ---
Assessment and Plan Assessment and plan (1) Benign prostatic hyperplasia (BPH) with urinary urge incontinence: Code(s): N40.1 - Benign prostatic hyperplasia with lower urinary tract symptoms; N39.41 - Urge incontinence Status: Acute Assessment and Plan: A Kimble catheter has been placed. He has been placed on Flomax as well as finasteride. If he is going to be here for a few more days a voiding trial could be done before discharge home. If that is done as long as his residual urine is less than 200 cc the Kimble can be left out. If not he be discharged home with the Kimble with urologic follow-up. He should continue the Flomax and finasteride (2) Overflow incontinence: Code(s): N39.490 - Overflow incontinence Status: Acute Urology Consult Note HPI Date Seen: 01/11/21 Requesting Physician: Alie Teague DO Primary Care Provider: Marcus Toussaint, Consult Narrative Narrative: Samuel Elmore is a 85 year old male who was admitted with multiple medical problems including anemia, chest pain, acute renal failure. He was seen by Nephrology. He noted them he has been having urinary issues. Specifically complaints of what sounds like overflow incontinence. He complains of urinary urgency and frequency. He complains of a slow urinary stream. He complains of significant nocturia. A bladder scan was performed which was highly elevated in the to 300-400 range. A Kimble catheter has now been placed. Before the Kimble catheter is placed renal ultrasound was done documenting no hydronephrosis. It did show an enlarged prostate measuring 5 cm. Review of Systems Constitutional: Constitutional: Reports anorexia and Reports body ache(s) ENT: Reports hearing loss Cardiovascular: Cardiovascular: Reports chest pain Respiratory: Respiratory: Denies cough Genitourinary: Genitourinary: Reports as per HPI Musculoskeletal: Musculoskeletal: Reports back pain, Reports myalgias, Reports muscle cramps and Reports muscle weakness Psychiatric: Psychiatric: Reports confusion PMFSH Past Medical History Medical History (Updated 01/11/21 @ 17:13 by Jose Aguilar MD) Acute blood loss anemia LATASHA (acute kidney injury) Anxiety CAD (coronary artery disease) Chronic ear infection Diabetes GIB (gastrointestinal bleeding) Hyperlipidemia Hypertension Pacemaker Surgical History Surgical History Hx of CABG Hx of CABG Pacemaker Social History Social History Smoking packs per day: 1 Smoking cigarettes per day: 20.0 Smoking status: Former smoker Smoking end date: 01/08/21 Gender identity (if verbalized by the patient): Male Spiritual care concerns: No Meds Home Medications and Allergies Home Medications Medication Instructions Recorded Confirmed Type amlodipine 10 mg PO DAILY 08/29/19 01/10/21 History atorvastatin 20 mg PO QPM 08/29/19 01/10/21 History insulin lispro protamin-lispro 16 unit SUBCUT QAM 08/29/19 01/10/21 History [Humalog Mix 75-25(U-100)Insuln] isosorbide mononitrate 60 mg PO DAILY 08/29/19 01/10/21 History aspirin 81 mg PO QPM 01/10/21 01/10/21 History cefepime 2 g IV Q12H 01/10/21 01/10/21 History clopidogrel 75 mg PO DAILY 01/10/21 01/10/21 History furosemide 20 mg PO DAILY 01/10/21 01/10/21 History hydralazine 25 mg PO BID 01/10/21 01/10/21 History hydrochlorothiazide 12.5 mg PO QAM 01/10/21 01/10/21 History insulin lispro protamin-lispro 10 unit SUBCUT QPM 01/10/21 01/10/21 History [Humalog Mix 75-25(U-100)Insuln] metoprolol tartrate 25 mg PO BID 01/10/21 01/10/21 History nitroglycerin 0.4 mg SUBLINGUAL PRN PRN 01/10/21 01/10/21 History polyethylene glycol 3350 [Miralax] 17 g PO DAILY PRN 01/10/21 01/10/21 History Allergies Allergy/AdvReac Type Severity Reaction Status Date / Time No Known Allergies Allergy Verified 01/10/21 10:57 Vital
[2021-01-11] MEDS: ATORVASTATIN 20 MG TABLET PO (17:41)
[2021-01-11 18:07] LABS: Glucose Point of Care 145 (65-105)
[2021-01-11 18:35] LABS: Add Urine Microscopic? YES; Appearance Urine Clear (Clear); Bacteria Urine Trace /hpf; Bilirubin Urine Negative (Negative); Blood Urine 2+ (Negative); Color Urine Yellow (Yellow); Glucose Urine UA Negative (Negative); Ketones Urine Trace mg/dL (Negative); Leukocyte Esterase Ur Negative LEU/UL (NEGATIVE); Mucus Urine Rare /lpf; Nitrate Urine Negative (Negative); Protein Urine 1+ mg/dL (Negative); Specific Grav Ur 1.019 (1.001-1.035); Squamous Epithelial Cell Urine Occasional /hpf (Few); Urobilinogen Urine Negative mg/dL (<2.0); WBC Urine 0-3 /hpf (0-3)
[2021-01-11 18:38] LABS: Total Protein Urine Random 51 mg/dL; Ur Ttl Prot Creatinine Ratio 0.63 mg/mg (0-0.20)
[2021-01-11 18:44] LABS: Sodium Urine Random 24 meq/L
[2021-01-11 19:19] LABS: Eosinophil Urine None Seen % (None Seen)
[2021-01-11 20:35] LABS: Glucose Point of Care 201 (65-105)
[2021-01-12] VITALS (22 sets, daily range): BP systolic 95–126; BP diastolic 39–55; PULSE 63–71; RESP 16–26; TEMP 35.5–36.6; O2SAT 91–100
--- NOTE | 2021-01-12 | ECHO_ITS ---
Patient Info Name: Samuel Elmore Age: 85 years : 1935 Gender: Male Ht: 66 in Wt: 150 lbs BSA: 1.79 m2 HR: 75 bpm BP: 116 / 50 mmHg Heart Rhythm: Paced Technical Quality: Good Exam Date: 01/12/2021 11:57 AM Exam Location: [facility] Pulmonary Exam Room: 214 Patient Status: Inpatient Admit Date: 01/10/2021 Staff Ordering Physician: Sameer Leblanc MD [employer] Instructor: Babs Lance RDCS Attending Provider: Alie Teague DO Referring Physician: Deana DAVID; Exam Type: CA echo doppler color flow Study Info Indications - CHF ACS PPM CAD S/P CABG ELEVATED TROPONINS Complete two-dimensional, color flow and Doppler transthoracic echocardiogram is performed. Summary 1. Complete two-dimensional, color flow and Doppler transthoracic echocardiogram is performed. 2. Left ventricular systolic function is normal, estimated at 55-60%. 3. Left ventricular septal wall motion is abnormal with septal motion related to pacing. 4. The left ventricular diastolic function is grade II diastolic dysfunction. 5. Left atrial chamber dimension is moderately enlarged. 6. Right atrial chamber dimension is severely enlarged. 7. There is moderate aortic valve stenosis with a peak velocity of 335 cm/s, mean gradient of 28 mmHg, and aortic valve area of 1.3 cm2. 8. There is severe aortic valve calcification. 9. There is trace aortic valve regurgitation. Left Ventricle Left ventricular chamber dimension is normal. Left ventricular systolic function is normal, estimated at 55-60%. Left ventricular septal wall motion is abnormal with septal motion related to pacing. The left ventricular diastolic function is grade II diastolic dysfunction. Right Ventricle Right ventricular chamber dimension is normal. Right ventricular systolic function is normal. Linear artifact in right ventricle suggestive of catheter(s), pacemaker lead(s), or ICD lead(s). Left Atria Left atrial chamber dimension is moderately enlarged. Right Atria Right atrial chamber dimension is severely enlarged. Aortic Valve The aortic valve is not well visualized. There is moderate aortic valve stenosis with a peak velocity of 335 cm/s, mean gradient of 28 mmHg, and aortic valve area of 1.3 cm2. There is severe aortic valve calcification. There is trace aortic valve regurgitation. Pulmonic Valve The pulmonic valve is normal. There is trace pulmonic regurgitation. Mitral Valve The mitral valve has thickened leaflets. There is mild mitral valve regurgitation. The mitral valve annulus is moderately calcified. Tricuspid Valve The tricuspid valve leaflets are normal. There is mild tricuspid valve regurgitation. No pulmonary hypertension, estimated pulmonary arterial systolic pressure is 32 mmHg. Pericardium/Pleural The pericardium appears normal. There is no pericardial effusion. Inferior Vena Cava Normal inferior vena cava with >50% collapse upon inspiration consistent with normal right atrial pressure, 5 mmHg. Aorta The aortic root size at the sinus of Valsalva is normal. There is mild-moderate aortic atherosclerosis. Left Ventricular Outflow Tract Name Value Normal LVOT 2D LVOT Diameter 2.1 cm
[2021-01-12] MEDS: FUROSEMIDE INJ 40 MG/4 ML VIAL IV PUSH (01:56)
--- NOTE | 2021-01-12 03:00 | ECG_ITS ---
Measurements Intervals [place] Rate: 67 P: [place]: 0 QRS: -85 QRSD: 177 T: 81 QT: 480 QTc: 509 Interpretive Statements ELECTRONIC VENTRICULAR PACEMAKER NO FURTHER INTERPRETATION IS POSSIBLE ATYPICAL ECG Electronically Signed On 01-17-2021 12:46:50 CDT by Jon Garza D.O.
[2021-01-12 05:12] LABS: Hematocrit 26.5 % (42.0-52.0); Hemoglobin 8.9 g/dL (14.0-18.0); Mean Corpuscular HGB Conc 33.6 g/dl (32-36); Mean Corpuscular Hemoglobin 30.9 pg (26-34); Mean Platelet Volume 11.9 fl (7.4-10.4); Platelet Count Result 111 k/mm3 (150-375); Red Blood Count 2.88 M/mm3 (4.6-6.20); Red Cell Distribution Width 16.1 % (11.5-14.5); White Blood Count 13.5 K/mm3 (4.5-10.0)
[2021-01-12 05:45] LABS: Albumin Level 3.4 g/dL (3.5-5.1); Anion Gap 5 mmol/L (8-16); Blood Urea Nitrogen 73 mg/dL (9-20); Calcium 8.4 mg/dL (8.4-10.2); Carbon Dioxide 24 mmol/L (22-30); Chloride 110 mmol/L (98-107); Estimated CRCL calculation 34 ml/min; Estimated Glomerular Filt Rate 53; Glucose 201 mg/dL (75-110); Phosphorus 3.2 mg/dL (2.5-4.5); Potassium 4.6 mmol/L (3.4-5.0); Sodium 139 mmol/L (137-145)
[2021-01-12] MEDS: CENTRAL LINE FLUSH 10 ML IV PUSH ×3 (06:17→19:56)
[2021-01-12 07:02] LABS: Glucose Point of Care 191 (65-105)
--- NOTE | 2021-01-12 07:26 | WPDANESPN ---
Anes - Prog Note Post-Op Date/Time: 01/12/21 07:26 Cardiovascular status: normal Respiratory status: normal Airway patency: baseline Mental status: baseline Post-Op hydration status: normal Vital Signs: Last Vital Signs Temp 36.2 C L 01/12/21 03:37 Pulse 67 01/12/21 06:00 Resp 18 01/12/21 03:37 BP 126/48 L 01/12/21 03:37 Pulse Ox 95 01/12/21 05:15 Pain Score (VAS): 2 I/O: Intake & Output 01/11/21 01/11/21 01/12/21 15:59 23:59 07:59 Intake Total 100 Output Total 329 407 5895 Balance -200 -600 -1450 Laboratory Tests 01/12/21 04:46 01/12/21 04:46 01/11/21 01/11/21 01/11/21 08:47 10:39 12:00 WBC RBC Hgb Hct MCV MCH MCHC RDW Plt Count MPV Immature Gran % (Auto) Neut % (Auto) Lymph % (Auto) [place] % (Auto) Eos % (Auto) Baso % (Auto) Lymph # (Auto) [place] # (Auto) Eos # (Auto) Baso # (Auto) Abs Immat Gran (auto) Absolute Neuts (auto) Absolute Nucleated RBC Nucleated RBC % ESR Sodium Potassium Chloride Carbon Dioxide Anion Gap BUN Creatinine Estim Creat Clear Calc Estimated GFR Glucose POC Capillary Glucose 108 105 121 H Calcium Phosphorus Total Creatine Kinase Troponin I Albumin Urine Color Urine Appearance Urine pH Ur Specific [place] Urine Protein Urine Glucose (UA) Urine Ketones Ur Blood (Man) Urine Nitrate Urine Bilirubin Urine Urobilinogen Ur Leukocyte Esterase Urine RBC Urine WBC Ur Squamous Epith Cells Urine Bacteria Hyaline Casts Urine Mucus Urine Eosinophils U Random Total Protein Ur Random Sodium Urine Creatinine Protein/Creat Ratio 2 [place]/Lambda Ratio Free [place] Light Chains Free Lambda Light Chain 01/11/21 01/11/21 01/11/21 12:43 14:36 14:36 WBC RBC Hgb Hct MCV MCH MCHC RDW Plt Count MPV Immature Gran % (Auto) Neut % (Auto) Lymph % (Auto) [place] % (Auto) Eos % (Auto) Baso % (Auto) Lymph # (Auto) [place] # (Auto) Eos # (Auto) Baso # (Auto) Abs Immat Gran (auto) Absolute Neuts (auto) Absolute Nucleated RBC Nucleated RBC % ESR 20 Sodium Potassium Chloride Carbon Dioxide Anion Gap BUN Creatinine Estim Creat Clear Calc Estimated GFR Glucose POC Capillary Glucose 135 H Calcium Phosphorus Total Creatine Kinase 488 H Troponin I Albumin Urine Color Urine Appearance Urine pH Ur Specific [place] Urine Protein Urine Glucose (UA) Urine Ketones Ur Blood (Man) Urine Nitrate Urine Bilirubin Urine Urobilinogen Ur Leukocyte Esterase Urine RBC Urine WBC Ur Squamous Epith Cells Urine Bacteria Hyaline Casts Urine Mucus Urine Eosinophils U Random Total Protein Ur Random Sodium Urine Creatinine Protein/Creat Ratio 2 [place]/Lambda Ratio Free [place] Light Chains Free Lambda Light Chain 01/11/21 01/11/21 01/11/21 14:36 14:36 17:39 WBC 15.6 H RBC 2.85 L Hgb 8.7 L Hct 25.6 L MCV 89.8 MCH 30.5 MCHC 34.0 RDW 16.3 H Plt Count 115 L MPV 11.8 H Immature Gran % (Auto) 1.1 H Neut % (Auto) 88.8 H Lymph % (Auto) 4.0 L [place] % (Auto) 5.5 Eos % (Auto) 0.2 Baso % (Auto) 0.4 Lymph # (Auto) 0.62 L [place] # (Auto) 0.9 H Eos # (Auto) 0.0 Baso # (Auto) 0.1 Abs Immat Gran (auto) 0.17 H Absolute Neuts (auto) 13.8 H Absolute Nucleated RBC 0.0 Nucleated RBC % 0.3 H ESR Sodium Potassium Chloride Carbon Dioxide Anion Gap BUN Creatinine Estim Creat Clear Calc Estimated GFR Glucose POC Capillary Glucose 145 H Calcium Phosphorus Total Creatine Kinase Troponin I Albumin Urine Color Urine Appearance Urine
[2021-01-12] MEDS: ISOSORBIDE MONONITRATE 60 MG TAB.ER.24H PO (08:48)
[2021-01-12] MEDS: TAMSULOSIN HCL 0.4 MG CAPSULE PO (08:49)
[2021-01-12] MEDS: FINASTERIDE 5 MG TABLET PO (08:49)
[2021-01-12] MEDS: PANTOPRAZOLE SODIUM IV 40 MG VIAL IV PUSH ×2 (08:52→19:55)
--- NOTE | 2021-01-12 09:38 | PM.PNNEP ---
Progress Note: A&P Assessment and Plan (1) LATASHA (acute kidney injury): Code(s): N17.9 - Acute kidney failure, unspecified Status: Acute Assessment and Plan: The patient has acute kidney injury. His creatinine went from 1-1.7 in a few hours. Renal ultrasound showed a large prostate but no hydro. Catheter was placed and he had large volume of urine. His creatinine has fallen from 1.7-1.3. Urology is seeing the patient. He is on finasteride and tamsulosin. (2) GIB (gastrointestinal bleeding): Code(s): K92.2 - Gastrointestinal hemorrhage, unspecified Status: Acute Assessment and Plan: the patient received blood transfusions. His hemoglobin is up to 8.9 He is being observed for further bleeding. (3) Acute blood loss anemia: Code(s): D62 - Acute posthemorrhagic anemia Status: Acute Assessment and Plan: Will check iron levels (4) Hypertension: Code(s): I10 - Essential (primary) hypertension Status: Inactive Assessment and Plan: his blood pressure is under good control. Systolic is running 110-130 (5) Hyperlipidemia: Code(s): E78.5 - Hyperlipidemia, unspecified Status: Inactive Assessment and Plan: he is on atorvastatin (6) CAD (coronary artery disease): Code(s): I25.10 - Atherosclerotic heart disease of [place] coronary artery without angina pectoris Status: Inactive Assessment and Plan: he is not having any chest pain. Cardiology saw him. (7) Diabetes: Code(s): E11.9 - Type 2 diabetes mellitus without complications Status: Inactive Assessment and Plan: He is on insulin Subjective Date/time seen: 01/12/21 09:38 Interval history: Patient feels okay today. He is upset that he has had his blood drawn because his triple-lumen catheter port is not allowing nurses to draw blood. He had a Kimble catheter placed yesterday and he has had lots of urine output since then. Review of Systems Cardiovascular: Cardiovascular: Reports no additional cardiovascular complaints Respiratory: Respiratory: Reports no additional respiratory complaints Gastrointestinal: Gastrointestinal: Reports no additional gastrointestinal complaints Genitourinary: Genitourinary: Reports no additional male genitourinary complaints Exam Narrative: Exam Narrative: WDWN in NAD skin no rash head ncat lungs clear cor reg no rub abd BS+ nontender and soft ext no edema. Objective Data Vital Signs Vital Signs: Vital Signs - 24 hr 01/11/21 10:00 01/11/21 10:44 01/11/21 11:36 Temperature 35.9 C L Pulse Rate 67 66 69 Respiratory Rate 18 15 Blood Pressure 112/46 L 116/58 L Pulse Oximetry 92 100 01/11/21 11:46 01/11/21 11:56 01/11/21 12:00 Temperature 36.0 C L Pulse Rate 66 65 66 Respiratory Rate 16 18 34 H Blood Pressure 111/46 L 127/49 L 116/46 L Pulse Oximetry 90 90 97 01/11/21 12:15 01/11/21 12:30 01/11/21 14:00 Temperature Pulse Rate 66 66 Respiratory Rate Blood Pressure Pulse Oximetry 92 01/11/21 16:00 01/11/21 16:30 01/11/21 18:00 Temperature 36.3 C L Pulse Rate 66 67 66 Respiratory Rate 24 H Blood Pressure 115/49 L Pulse Oximetry 95 01/11/21 20:00 01/11/21 21:28 01/11/21 22:00 Temperature 36.2 C L Pulse Rate 66 66 Respiratory Rate 18 Blood Pressure 109/44 L Pulse Oximetry 93 98 01/11/21 22:15 01/11/21 23:07 01/12/21 00:00 Temperature 36.0 C L Pulse Rate 68 68 Respiratory Rate 16 Blood Pressure 112/52 L Pulse Oximetry 87 L 92 95 01/12/21 01:15 01/12/21 01:26 01/12/21 01:40 Temperature Pulse Rate Respiratory Rate Blood Pressure Pulse Oximetry 94 97 95 01/12/21 02:00 01/12/21 03:37 01/12/21 03:43 Temperature 36.2 C L Pulse Rate 66 66 Respiratory Rate 18 Blood Pressure 126/48 L Pulse Oximetry 98 100 01/12/21 04:00 01/12/21 04:50 01/12/21 05:15 Temperature Pu
--- NOTE | 2021-01-12 12:13 | WPDGIPROGNO ---
Progress Note: A&P Assessment and Plan (1) Gastritis: Code(s): K29.70 - Gastritis, unspecified, without bleeding Status: Acute Assessment and Plan: erosive gastritis without signs of bleeding, colonoscopy unremarkable continue with ppi twice daily hb stable after blood transfusion holding blood thinner for now will follow [place], call if questions (2) Acute blood loss anemia: Code(s): D62 - Acute posthemorrhagic anemia Status: Acute Assessment and Plan: required blood transfusion monitor h/h, no signs of bleeding (3) GIB (gastrointestinal bleeding): Code(s): K92.2 - Gastrointestinal hemorrhage, unspecified Status: Acute (4) LATASHA (acute kidney injury): Code(s): N17.9 - Acute kidney failure, unspecified Status: Acute Assessment and Plan: monitor renal function, nephrology on board (5) CAD (coronary artery disease): Code(s): I25.10 - Atherosclerotic heart disease of [place] coronary artery without angina pectoris Status: Acute Assessment and Plan: evaluated by cardiology Subjective Date/time seen: 01/12/21 12:13 Interval history: egd yesterday showed moderate gastritis but no signs of bleeding, colonoscopy nothing to explain anemia only one small polyp removed Review of Systems Review of Systems: All systems reviewed & are unremarkable except as noted in HPI and below Exam Const: General: comfortable and no acute distress Other: elderly white male appears to be rather frail HENMT: Mouth: Yes dry mucous membranes Eyes: Sclera: sclerae normal Pupils: Equal, round and reactive pupils present Neck: Neck: supple and no JVD Resp: Effort & Inspection: normal respiratory effort Auscultation: clear to auscultation bilaterally Cardio: Rate: regular rate Rhythm: regular rhythm GI: GI Palp: Yes Soft to palpation and No Tenderness to palpation present (GI) Auscultation: normal bowel sounds Skin: General skin exam: normal color Extrem: General: normal to inspection Psych: Affect: normal affect Objective Data Vital Signs Vital Signs: Vital Signs - 24 hr 01/11/21 12:15 01/11/21 12:30 01/11/21 14:00 Temperature Pulse Rate 66 66 Respiratory Rate Blood Pressure Pulse Oximetry 92 01/11/21 16:00 01/11/21 16:30 01/11/21 18:00 Temperature 97.3 F L Pulse Rate 66 67 66 Respiratory Rate 24 H Blood Pressure 115/49 L Pulse Oximetry 95 01/11/21 20:00 01/11/21 21:28 01/11/21 22:00 Temperature 97.2 F L Pulse Rate 66 66 Respiratory Rate 18 Blood Pressure 109/44 L Pulse Oximetry 93 98 01/11/21 22:15 01/11/21 23:07 01/12/21 00:00 Temperature 96.8 F L Pulse Rate 68 68 Respiratory Rate 16 Blood Pressure 112/52 L Pulse Oximetry 87 L 92 95 01/12/21 01:15 01/12/21 01:26 01/12/21 01:40 Temperature Pulse Rate Respiratory Rate Blood Pressure Pulse Oximetry 94 97 95 01/12/21 02:00 01/12/21 03:37 01/12/21 03:43 Temperature 97.1 F L Pulse Rate 66 66 Respiratory Rate 18 Blood Pressure 126/48 L Pulse Oximetry 98 100 01/12/21 04:00 01/12/21 04:50 01/12/21 05:15 Temperature Pulse Rate 69 Respiratory Rate Blood Pressure Pulse Oximetry 98 95 01/12/21 06:00 01/12/21 08:00 01/12/21 08:54 Temperature 96 F L Pulse Rate 67 63 Respiratory Rate 24 H Blood Pressure 116/50 L Pulse Oximetry 100 96 01/12/21 10:00 01/12/21 10:30 Temperature Pulse Rate 66 Respiratory Rate Blood Pressure Pulse Oximetry 95 Intake/Output Intake/Output: Intake & Output 01/09/21 01/10/21 01/11/21 01/12/21 23:59 23:59 23:59 23:59 Intake Total 2650 1160 Output Total 200 1850 1450 Balance 4951 -314 -8359 Meds/Results Medications: Active Medications Generic Name Dose Route Start Last Admin Trade Name Freq PRN Reason Stop Dose Admin Acetaminophen/Codeine Phosphate 1 tab 01/11/21 12:39 Acetaminophen/Codeine (
--- NOTE | 2021-01-12 13:04 | PM.PNCARD ---
Progress Note: A&P Assessment and Plan (1) Acute respiratory failure with hypoxia: Code(s): J96.01 - Acute respiratory failure with hypoxia Status: Acute Assessment and Plan: Improved with O2 supplementation. Chest x-ray with pulmonary vascular congestion with evidence of acute pulmonary vascular congestion. Diuresis as tolerated. (2) CAD (coronary artery disease): Code(s): I25.10 - Atherosclerotic heart disease of [place] coronary artery without angina pectoris Status: Acute Assessment and Plan: Off ASA and clopidogrel due to severe anemia status post 3 unit PRBC and moderate erosive gastritis on endoscopy probable upper GI bleed. No active bleeding noted however. (3) NSTEMI (non-ST elevated myocardial infarction): Code(s): I21.4 - Non-ST elevation (NSTEMI) myocardial infarction Status: Acute Assessment and Plan: Significant troponin elevation likely secondary to severe anemia as such demand ischemia, however, concern back pain may be anginal equivalent given known underlying CAD status post CABG remotely. Unable to anticoagulate or safely reinitiate dual antiplatelet therapy. Therefore, coronary angiography ill advised as we would not be able to indiscriminately proceed with intervention in anticoagulant and antiplatelet management as would be indicated. Discussed this in great detail with regards to risk for subsequent thrombotic complications and/or acute recurrent bleeding conservative management at this time. Patient nonetheless at high risk for complications given precarious situation or ideally anticoagulation and/or antiplatelet therapy would be advised but has been discontinued for several days in setting of severe anemia and upper GI bleed. Repeat 12 lead EKG. 2D echo pending. Recommendations to follow. (4) LATASHA (acute kidney injury): Code(s): N17.9 - Acute kidney failure, unspecified Status: Acute Assessment and Plan: Improved. Continue to follow BMP. (5) Acute blood loss anemia: Code(s): D62 - Acute posthemorrhagic anemia Status: Acute Assessment and Plan: A change stable status post transfusion. No current evidence of ongoing active bleed. (6) Upper gastrointestinal bleeding: Code(s): K92.2 - Gastrointestinal hemorrhage, unspecified Status: Acute Assessment and Plan: Appreciate GI involvement. Upper Endoscopy and colonoscopy personally reviewed and analyzed. Moderate erosive gastritis, polyps removed, no active stigmata of bleeding. No gastric ulcers noted. Advised to hold antiplatelet per GI. PPI. (7) History of pacemaker: Code(s): Z95.0 - Presence of cardiac pacemaker Status: Acute Assessment and Plan: No acute issues. Subjective Date/time seen: Date of service: 01/12/21 13:04 Follow-up for elevated troponin in setting of severe anemia with acute GI blood loss Patient feels short of breath denies chest pain but admits to mid back pain which is new but he is vague on when this began. He was having severe neck and shoulder pain past day or so improved with pain medication. Overnight patient became acutely hypoxic requiring 15 L O2 now back down to 4 L high flow. X-ray with pulmonary vascular congestion, given IV Lasix 40 mg x 1 with improvement. Troponin rechecked elevated at >13. BP reasonably stable. Maintaining sinus rhythm. Review of Systems Review of Systems: All systems reviewed & are unremarkable except as noted in HPI and below Constitutional: Constitutional: Reports as per HPI, Reports no additional constitutional complaints and Reports weakness Eyes: Eyes: Reports as per HPI and Reports no additional eye complaints ENT: Reports system reviewed and no additional complaints, except as documented and Reports as per HPI Cardiovascular: Cardiovascular: Reports as per HPI, Reports no additional cardiovascular complaints, Denies chest pain and Denies diaphoresis Respir
--- NOTE | 2021-01-12 13:05 | ECG_ITS ---
Measurements Intervals Stewart Rate: 67 P: RI: 0 QRS: -80 QRSD: 169 T: 89 QT: 457 QTc: 483 Interpretive Statements ATRIAL SENSE- ELECTRONIC VENTRICULAR PACEMAKER BASELINE ARTIFACT- V1-V3 NO FURTHER INTERPRETATION IS POSSIBLE ATYPICAL ECG Electronically Signed On 01-12-2021 15:06:18 CDT by Jon Garza D.O.
[2021-01-12 13:12] LABS: Glucose Point of Care 125 (65-105)
--- NOTE | 2021-01-12 15:12 | PM.IMPN ---
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 [facility] (3) Elevated troponin: Code(s): R77.8 - Other specified abnormalities of plasma proteins Status: Acute Assessment and Plan: Pt troponin is elevated restart plavix after long discussion on risks and benefits (4) Upper gastrointestinal bleeding: Code(s): K92.2 - Gastrointestinal hemorrhage, unspecified Status: Acute Assessment and Plan: Sp Colonscopy (5) Anemia: Code(s): D64.9 - Anemia, unspecified Status: Acute Assessment and Plan: Continue to monitor hb has improved to 8 from 5 sp 3 units of blood, hb is now 8 (6) Neck pain: Code(s): M54.2 - Cervicalgia Status: Acute Assessment and Plan: CT CHEST AND CT NECK ORDERED, XRay of l spine ordered for tomorrow. Subjective Date/time seen: 01/12/21 15:12 Interval history: 85-year-old male who presents ER with right-sided chest pain. Pt complains of pain in his mid back no further rectal bleeding some mild chest pain last night and troponin went up to 13, Pt seen by cardiology long discussion about risks and benefits restarted on plavix after discussion with GI Review of Systems Review of Systems: All systems reviewed & are unremarkable except as noted in HPI and below Exam Const: General: other (elderly and frail ) Chest: Chest palpation & inspection: normal inspection of the chest Resp: Effort & Inspection: normal respiratory effort Auscultation: clear to auscultation bilaterally Cardio: Jugular venous distension: no JVD Rhythm: regular rhythm Heart sounds: S1 normal heart sound present and S2 normal heart sound present GI: Inspection: normal to inspection Auscultation: normal bowel sounds Back/Spine/Pelvis: Back: other (mid back pain ) Skin: General skin exam: normal color and dry skin Neuro: Cranial nerves: Yes CN's II-XII intact bilaterally and Yes Equal, round and reactive pupils present Cognition (Neuro): abnormal cognition (due to tiredness ) Speech: Other speech findings present (Neuro) (slow ) Extrem: General: other (Generailsed weakness bilaterally ) Psych: Appearance: grossly normal Mental Status: mental status grossly normal Objective Data Vital Signs Vital Signs: Vital Signs - 24 hr 01/11/21 16:00 01/11/21 16:30 01/11/21 18:00 Temperature 36.3 C L Pulse Rate 66 67 66 Respiratory Rate 24 H Blood Pressure 115/49 L Pulse Oximetry 95 01/11/21 20:00 01/11/21 21:28 01/11/21 22:00 Temperature 36.2 C L Pulse Rate 66 66 Respiratory Rate 18 Blood Pressure 109/44 L Pulse Oximetry 93 98 01/11/21 22:15 01/11/21 23:07 01/12/21 00:00 Temperature 36.0 C L Pulse Rate 68 68 Respiratory Rate 16 Blood Pressure 112/52 L Pulse Oximetry 87 L 92 95 01/12/21 01:15 01/12/21 01:26 01/12/21 01:40 Temperature Pulse Rate Respiratory Rate Blood Pressure Pulse Oximetry 94 97 95 01/12/21 02:00 01/12/21 03:37 01/12/21 03:43 Temperature 36.2 C L Pulse Rate 66 66 Respiratory Rate 18 Blood Pressure 126/48 L Pulse Oximetry 98 100 01/12/21 04:00 01/12/21 04:50 01/12/21 05:15 Temperature Pulse Rate 69 Respiratory Rate Blood Pressure Pulse Oximetry 98 95 01/12/21 06:00 01/12/21 08:00 01/12/21 08:54 Temperature 35.5 C L Pulse Rate 67 63 Respiratory Rate 24 H Blood Pressure 116/50 L Pulse Oximetry 100 96 01/12/21 10:00 01/12/21 10:30 01/12/21 12:00 Temperature 35.9 C L Pulse Rate 66 67 Respiratory Rate 26 H Blood Pressure 95/39 L Pulse Oximetry 95 91
[2021-01-12 16:55] LABS: Glucose Point of Care 204 (65-105)
[2021-01-12] MEDS: ATORVASTATIN 20 MG TABLET PO (17:01)
[2021-01-12] MEDS: INSULIN ASPART (*BKC) 100 UNITS/ML SUB-Q (17:01)
[2021-01-12 21:05] LABS: Glucose Point of Care 112 (65-105)
[2021-01-13] VITALS (17 sets, daily range): BP systolic 112–131; BP diastolic 44–64; PULSE 63–72; RESP 14–18; TEMP 36.1–36.6; O2SAT 92–97
[2021-01-13] MEDS: CENTRAL LINE FLUSH 10 ML IV PUSH ×4 (06:44→21:08)
[2021-01-13] MEDS: CLOPIDOGREL BISULFATE 75 MG TABLET PO (08:04)
[2021-01-13] MEDS: ISOSORBIDE MONONITRATE 60 MG TAB.ER.24H PO (08:04)
[2021-01-13] MEDS: FINASTERIDE 5 MG TABLET PO (08:06)
[2021-01-13] MEDS: TAMSULOSIN HCL 0.4 MG CAPSULE PO (08:07)
[2021-01-13] MEDS: PANTOPRAZOLE SODIUM IV 40 MG VIAL IV PUSH ×2 (08:08→21:08)
[2021-01-13 08:10] LABS: Glucose Point of Care 109 (65-105)
[2021-01-13 09:36] LABS: Hematocrit 24.5 % (42.0-52.0); Hemoglobin 8.4 g/dL (14.0-18.0); Mean Corpuscular HGB Conc 34.3 g/dl (32-36); Mean Corpuscular Hemoglobin 31.3 pg (26-34); Mean Corpuscular Volume 91.4 fl (80-100); Mean Platelet Volume 11.2 fl (7.4-10.4); Platelet Count Result 106 k/mm3 (150-375); Red Blood Count 2.68 M/mm3 (4.6-6.20); Red Cell Distribution Width 15.6 % (11.5-14.5); White Blood Count 10.3 K/mm3 (4.5-10.0)
--- NOTE | 2021-01-13 09:44 | PM.PNNEP ---
Progress Note: A&P Assessment and Plan (1) LATASHA (acute kidney injury): Code(s): N17.9 - Acute kidney failure, unspecified Status: Acute Assessment and Plan: The patient has acute kidney injury. His creatinine went from 1-1.7 in a few hours. Renal ultrasound showed a large prostate but no hydro. Catheter was placed and he had large volume of urine. His creatinine has fallen from 1.7-1.3. Today's level is pending. Urology is seeing the patient. He is on finasteride and tamsulosin. (2) GIB (gastrointestinal bleeding): Code(s): K92.2 - Gastrointestinal hemorrhage, unspecified Status: Acute Assessment and Plan: the patient received blood transfusions. His hemoglobin is up to 8.9 He is being observed for further bleeding. Will check another hemoglobin tomorrow. (3) Acute blood loss anemia: Code(s): D62 - Acute posthemorrhagic anemia Status: Acute Assessment and Plan: Will check iron levels in the morning (4) Hypertension: Code(s): I10 - Essential (primary) hypertension Status: Inactive Assessment and Plan: his blood pressure is under good control. Systolic is running 110-130 (5) Hyperlipidemia: Code(s): E78.5 - Hyperlipidemia, unspecified Status: Inactive Assessment and Plan: he is on atorvastatin (6) CAD (coronary artery disease): Code(s): I25.10 - Atherosclerotic heart disease of [place] coronary artery without angina pectoris Status: Acute Assessment and Plan: he is not having any chest pain. His troponins were higher yesterday. Cardiology saw him. (7) Diabetes: Code(s): E11.9 - Type 2 diabetes mellitus without complications Status: Inactive Assessment and Plan: He is on insulin Subjective Date/time seen: 01/13/21 09:44 Interval history: Patient feels okay today. He is talking about transfer to [place]. Mostly because of his malfunctioning IVs. Review of Systems Cardiovascular: Cardiovascular: Reports no additional cardiovascular complaints Respiratory: Respiratory: Reports no additional respiratory complaints Gastrointestinal: Gastrointestinal: Reports no additional gastrointestinal complaints Genitourinary: Genitourinary: Reports no additional male genitourinary complaints Exam Narrative: Exam Narrative: WDWN in NAD skin no rash head ncat lungs clear bilaterally cor reg no rub or gallop abd BS+ nontender and soft ext no edema. Objective Data Vital Signs Vital Signs: Vital Signs - 24 hr 01/12/21 10:00 01/12/21 10:30 01/12/21 12:00 Temperature 35.9 C L Pulse Rate 66 67 Respiratory Rate 26 H Blood Pressure 95/39 L Pulse Oximetry 95 91 01/12/21 14:00 01/12/21 16:00 01/12/21 18:00 Temperature 36.3 C L Pulse Rate 69 69 67 Respiratory Rate 22 H Blood Pressure 99/45 L Pulse Oximetry 92 01/12/21 20:00 01/12/21 22:00 01/12/21 23:34 Temperature 36.6 C 36.4 C Pulse Rate 66 65 69 Respiratory Rate 18 16 Blood Pressure 102/55 L 115/47 L Pulse Oximetry 95 97 01/13/21 00:00 01/13/21 02:00 01/13/21 04:00 Temperature 36.4 C L Pulse Rate 69 64 66 Respiratory Rate 18 Blood Pressure 118/44 L Pulse Oximetry 94 95 01/13/21 06:00 01/13/21 08:00 Temperature 36.5 C Pulse Rate 64 67 Respiratory Rate 14 Blood Pressure 126/54 L Pulse Oximetry 94 Intake/Output Intake/Output: Intake & Output 01/10/21 01/11/21 01/12/21 01/13/21 23:59 23:59 23:59 23:59 Intake Total 2650 1210 1450 360 Output Total 200 1850 2450 750 Balance 2450 -640 -1000 -390 Meds/Results Medications: Active Medications Generic Name Dose Route Start Last Admin Trade Name Freq PRN Reason Stop Dose Admin Acetaminophen/Codeine Phosphate 1 tab 01/11/21 12:39 Acetaminophen/Codeine (*Crx) 300/30 Mg Tablet PO Q4H PRN Pain Rated 4-6 Atorvastatin Calcium 20 mg 01/11/21 18:00 01/12/21 17:01 A
[2021-01-13 09:59] LABS: Anion Gap 5 mmol/L (8-16); Blood Urea Nitrogen 54 mg/dL (9-20); Carbon Dioxide 26 mmol/L (22-30); Chloride 107 mmol/L (98-107); Estimated CRCL calculation 40 ml/min; Estimated Glomerular Filt Rate > 60; Glucose 159 mg/dL (75-110); Potassium 3.9 mmol/L (3.4-5.0); Sodium 138 mmol/L (137-145)
--- NOTE | 2021-01-13 10:33 | WPDGIPROGNO ---
Progress Note: A&P Assessment and Plan (1) Gastritis: Code(s): K29.70 - Gastritis, unspecified, without bleeding Status: Acute Assessment and Plan: erosive gastritis without signs of bleeding, colonoscopy unremarkable continue with ppi twice daily hb stable after blood transfusion noted significant elevation of troponin, discussed with hospitalist and plavix was resumed yesterday (he probably also has anemia as baseline with other chronic medical conditions) no signs of bleeding, continue to monitor (2) Acute blood loss anemia: Code(s): D62 - Acute posthemorrhagic anemia Status: Acute Assessment and Plan: required blood transfusion monitor h/h, no signs of bleeding ok to use plavix in setting of high troponins (3) GIB (gastrointestinal bleeding): Code(s): K92.2 - Gastrointestinal hemorrhage, unspecified Status: Acute Assessment and Plan: on ppi, no more signs of bleeding (4) LATASHA (acute kidney injury): Code(s): N17.9 - Acute kidney failure, unspecified Status: Acute Assessment and Plan: monitor renal function, nephrology on board (5) CAD (coronary artery disease): Code(s): I25.10 - Atherosclerotic heart disease of [place] coronary artery without angina pectoris Status: Acute Assessment and Plan: evaluated by cardiology Subjective Date/time seen: 01/13/21 10:33 Interval history: he denies chest pain, did not have BM Review of Systems Review of Systems: All systems reviewed & are unremarkable except as noted in HPI and below Exam Const: General: comfortable and no acute distress Other: frail elderly HENMT: Mouth: Yes dry mucous membranes Eyes: Sclera: sclerae normal Pupils: Equal, round and reactive pupils present Neck: Neck: supple and no JVD Resp: Effort & Inspection: normal respiratory effort Auscultation: clear to auscultation bilaterally Cardio: Rate: regular rate Rhythm: regular rhythm Heart sounds: Murmur heart sound present GI: GI Palp: Yes Soft to palpation and No Tenderness to palpation present (GI) Auscultation: normal bowel sounds Skin: General skin exam: normal color Neuro: Speech: normal speech Extrem: General: normal to inspection Psych: Affect: normal affect Objective Data Vital Signs Vital Signs: Vital Signs - 24 hr 01/12/21 12:00 01/12/21 14:00 01/12/21 16:00 Temperature 96.6 F L 97.3 F L Pulse Rate 67 69 69 Respiratory Rate 26 H 22 H Blood Pressure 95/39 L 99/45 L Pulse Oximetry 91 92 01/12/21 18:00 01/12/21 20:00 01/12/21 22:00 Temperature 97.9 F Pulse Rate 67 66 65 Respiratory Rate 18 Blood Pressure 102/55 L Pulse Oximetry 95 01/12/21 23:34 01/13/21 00:00 01/13/21 02:00 Temperature 97.6 F Pulse Rate 69 69 64 Respiratory Rate 16 Blood Pressure 115/47 L Pulse Oximetry 97 94 01/13/21 04:00 01/13/21 06:00 01/13/21 08:00 Temperature 97.5 F L 97.7 F Pulse Rate 66 64 69 Respiratory Rate 18 14 Blood Pressure 118/44 L 126/54 L Pulse Oximetry 95 95 Intake/Output Intake/Output: Intake & Output 01/10/21 01/11/21 01/12/21 01/13/21 23:59 23:59 23:59 23:59 Intake Total 2650 1210 1450 360 Output Total 200 1850 2450 750 Balance 2450 -640 -1000 -390 Meds/Results Medications: Active Medications Generic Name Dose Route Start Last Admin Trade Name Freq PRN Reason Stop Dose Admin Acetaminophen/Codeine Phosphate 1 tab 01/11/21 12:39 Acetaminophen/Codeine (*Crx) 300/30 Mg Tablet PO Q4H PRN Pain Rated 4-6 Atorvastatin Calcium 20 mg 01/11/21 18:00 01/12/21 17:01 Atorvastatin 20 Mg Tablet PO 20 mg QPM JOAO Administration Clopidogrel Bisulfate 75 mg 01/13/21 09:00 01/13/21 08:04 Clopidogrel Bisulfate 75 Mg Tablet PO 75 mg QAM JOAO Administration Dextrose 12.5 gm 01/10/21 15:07 Dextrose 50% 25 Gm/50 Ml Syringe IV PUSH PRN PRN Hypoglycemia Protocol Finasteride 5 mg
[2021-01-13] MEDS: ALTEPLASE 2 MG VIAL (CATHFLO) IV PUSH ×2 (11:18→11:19)
[2021-01-13 11:55] LABS: Glucose Point of Care 96 (65-105)
--- NOTE | 2021-01-13 13:08 | PM.IMPN ---
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 (3) Elevated troponin: Code(s): R77.8 - Other specified abnormalities of plasma proteins Status: Acute Assessment and Plan: Pt troponin is elevated restart plavix after long discussion on risks and benefits (4) Upper gastrointestinal bleeding: Code(s): K92.2 - Gastrointestinal hemorrhage, unspecified Status: Acute Assessment and Plan: Sp Colonscopy, Gi rounding see recommendations (5) Anemia: Code(s): D64.9 - Anemia, unspecified Status: Acute Assessment and Plan: Continue to monitor hb has improved to 8 from 5 sp 3 units of blood, hb is now 8 (6) Neck pain: Code(s): M54.2 - Cervicalgia Status: Acute Assessment and Plan: CT CHEST AND CT NECK ORDERED, XRay of l spine ordered for tomorrow pt refusinf xray of lumbar spine, continue pain medications prn for chronic pain likely oa and spondylosis Subjective Date/time seen: 01/13/21 13:08 Interval history: 85-year-old male who presents ER with right-sided chest pain. Pt troponin has improved to 5 from 13, Pt seen by cardiology long discussion about risks and benefits restarted on plavix now. Pt appears to be better denies chest pain or shoulder pain today. Still breathing fast and needing oxygen. Review of Systems Review of Systems: All systems reviewed & are unremarkable except as noted in HPI and below Exam Const: General: other (elderly and frail ) HENMT: Head: normocephalic Eyes: Pupils: Equal, round and reactive pupils present Neck: Neck: supple Chest: Chest palpation & inspection: normal inspection of the chest Resp: Effort & Inspection: abnormal respiratory pattern and respiratory distress (tacyhpneic ) Auscultation: clear to auscultation bilaterally Cardio: Jugular venous distension: no JVD Rhythm: regular rhythm Heart sounds: S1 normal heart sound present and S2 normal heart sound present GI: Inspection: normal to inspection Auscultation: normal bowel sounds Back/Spine/Pelvis: Back: other (mid back pain ) Skin: General skin exam: normal color and dry skin Neuro: Cranial nerves: Yes CN's II-XII intact bilaterally and Yes Equal, round and reactive pupils present Cognition (Neuro): abnormal cognition (due to tiredness ) Speech: Other speech findings present (Neuro) (slow ) Extrem: General: other (Generailsed weakness bilaterally ) Psych: Appearance: grossly normal Mental Status: mental status grossly normal Objective Data Vital Signs Vital Signs: Vital Signs - 24 hr 01/12/21 14:00 01/12/21 16:00 01/12/21 18:00 Temperature 36.3 C L Pulse Rate 69 69 67 Respiratory Rate 22 H Blood Pressure 99/45 L Pulse Oximetry 92 01/12/21 20:00 01/12/21 22:00 01/12/21 23:34 Temperature 36.6 C 36.4 C Pulse Rate 66 65 69 Respiratory Rate 18 16 Blood Pressure 102/55 L 115/47 L Pulse Oximetry 95 97 01/13/21 00:00 01/13/21 02:00 01/13/21 04:00 Temperature 36.4 C L Pulse Rate 69 64 66 Respiratory Rate 18 Blood Pressure 118/44 L Pulse Oximetry 94 95 01/13/21 06:00 01/13/21 08:00 01/13/21 09:10 Temperature 36.5 C Pulse Rate 64 69 Respiratory Rate 14 Blood Pressure 126/54 L Pulse Oximetry 95 95 01/13/21 10:00 01/13/21 11:00 01/13/21 12:00 Temperature 36.6 C Pulse Rate 69 70 Respiratory Rate 14 Blood Pressure 122/58 L Pulse Oximetry 94 97 01/13/21 12:42 Temperature Pulse Rate Respiratory Rate Blood Pressure Pulse Oximetry 96 Intake/Output Intak
--- NOTE | 2021-01-13 13:41 | PM.PNCARD ---
Progress Note: A&P Assessment and Plan (1) Acute respiratory failure with hypoxia: Code(s): J96.01 - Acute respiratory failure with hypoxia Status: Acute Assessment and Plan: Improved, O2 supplementation. Chest x-ray with pulmonary vascular congestion with evidence of acute pulmonary vascular congestion. Diuresis as tolerated. P.o. Lasix 20 mg starting tomorrow. (2) CAD (coronary artery disease): Code(s): I25.10 - Atherosclerotic heart disease of [place] coronary artery without angina pectoris Status: Acute Assessment and Plan: Was taken off Off ASA and clopidogrel due to severe anemia status post 3 unit PRBC and moderate erosive gastritis on endoscopy probable upper GI bleed. No active bleeding noted however. Continue conservative management at this time. Telemetry may be discontinued if no issues overnight. GI okayed resumption. I would resume Plavix 75 mg daily continue statin, nitrate therapy as tolerated. (3) NSTEMI (non-ST elevated myocardial infarction): Code(s): I21.4 - Non-ST elevation (NSTEMI) myocardial infarction Status: Acute Assessment and Plan: Significant troponin elevation likely secondary to severe anemia as such demand ischemia, however, concern back pain may be anginal equivalent given known underlying CAD status post CABG remotely. Plavix resumed. Ill advised to proceed with coronary angiography given recent GI bleed, severe anemia status post transfusion. Conservative management at this time, clinically stable and relatively asymptomatic. 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 No plans for invasive angiography this hospitalization. Patient in agreement with this plan and also states he does not wish to proceed with more invasive testing. Echocardiogram personally reviewed EF 55-60%, moderate aortic stenosis on this study. (4) LATASHA (acute kidney injury): Code(s): N17.9 - Acute kidney failure, unspecified Status: Acute Assessment and Plan: Improved. Continue to follow BMP. (5) Acute blood loss anemia: Code(s): D62 - Acute posthemorrhagic anemia Status: Acute Assessment and Plan: A change stable status post transfusion. No current evidence of ongoing active bleed. (6) Upper gastrointestinal bleeding: Code(s): K92.2 - Gastrointestinal hemorrhage, unspecified Status: Acute Assessment and Plan: Appreciate GI involvement. Moderate erosive gastritis, polyps removed, no active stigmata of bleeding. No gastric ulcers noted. Okay to resume per GI antiplatelet therapy as above. PPI. (7) History of pacemaker: Code(s): Z95.0 - Presence of cardiac pacemaker Status: Acute Assessment and Plan: No acute issues. Pacing without issue. Subjective Date/time seen: Date of service: 01/13/21 13:41 Interval history: Follow-up visit in this 85-year-old man with: Coronary artery disease remote history of surgical revascularization, no recent cardiac instability. Patient found to have an elevated troponin level in the setting of severe anemia with upper GI bleeding. Endoscopic evaluation today demonstrates some gastritis and some colon polyps. Patient states he feels okay, better today. Reported by nursing he was refusing medications, chest x-ray but patient denies this refusing medications. Okay to restart antiplatelet therapy per GI. Patient denies chest pain, notes intermittent neck pain, back pain, side pain typically fleeting, sharp in nature improved with position change. No new issues overnight. Denies knowledge of recurrent bleeding. Reports by nursing. Apparently, patient considered transfer to [place] but has changed his mind. Review of Systems Review of Systems: All systems reviewed & are unremarkable except as noted in HPI and below Constitutional: Constitutional: Reports as per HPI, Reports no additi
--- NOTE | 2021-01-13 14:07 | PCSTNOTE ---
Please refer to the Bedside Swallow Evaluation in the EMR. Please note, silent aspiration cannot be ruled out at bedside.
[2021-01-13 15:45] LABS: Glucose Point of Care 104 (65-105)
[2021-01-13] MEDS: ATORVASTATIN 20 MG TABLET PO (18:18)
[2021-01-13 20:19] LABS: Glucose Point of Care 93 (65-105)
--- NOTE | 2021-01-13 23:10 | PC.NURSE ---
BLOOD FOR TROPONIN WAS LOST IN THE TUBE SYSTEM. JUST DOWN TO LAB.
[2021-01-13 23:54] LABS: Kappa\\Lambda Light Chains 0.92 (0.26-1.65); Lambda Light Chain 33.4 mg/L (5.7-26.3)
[2021-01-14] VITALS (14 sets, daily range): BP systolic 96–141; BP diastolic 49–55; PULSE 64–83; RESP 16–24; TEMP 36.1–36.6; O2SAT 91–100
[2021-01-14] MEDS: CENTRAL LINE FLUSH 10 ML IV PUSH ×3 (05:34→22:38)
[2021-01-14 05:52] LABS: Hematocrit 25.1 % (42.0-52.0); Hemoglobin 8.5 g/dL (14.0-18.0); Mean Corpuscular HGB Conc 33.9 g/dl (32-36); Mean Corpuscular Hemoglobin 30.9 pg (26-34); Mean Corpuscular Volume 91.3 fl (80-100); Mean Platelet Volume 11.3 fl (7.4-10.4); Platelet Count Result 133 k/mm3 (150-375); Red Blood Count 2.75 M/mm3 (4.6-6.20); Red Cell Distribution Width 15.2 % (11.5-14.5); White Blood Count 10.5 K/mm3 (4.5-10.0)
[2021-01-14 06:11] LABS: Albumin Level 3.2 g/dL (3.5-5.1); Anion Gap 5 mmol/L (8-16); Blood Urea Nitrogen 37 mg/dL (9-20); Calcium 7.9 mg/dL (8.4-10.2); Carbon Dioxide 27 mmol/L (22-30); Chloride 105 mmol/L (98-107); Estimated CRCL calculation 48 ml/min; Estimated Glomerular Filt Rate > 60; Glucose 102 mg/dL (75-110); Phosphorus 2.5 mg/dL (2.5-4.5); Potassium 3.9 mmol/L (3.4-5.0); Sodium 137 mmol/L (137-145)
[2021-01-14 06:29] LABS: Iron 26 ug/dL (49-181)
[2021-01-14 06:39] LABS: Percent Iron Saturation 10 % (20-50)
[2021-01-14] MEDS: ISOSORBIDE MONONITRATE 60 MG TAB.ER.24H PO (07:56)
[2021-01-14] MEDS: TAMSULOSIN HCL 0.4 MG CAPSULE PO (07:56)
[2021-01-14] MEDS: FUROSEMIDE 20 MG TABLET PO (07:57)
[2021-01-14] MEDS: CLOPIDOGREL BISULFATE 75 MG TABLET PO (07:58)
[2021-01-14] MEDS: FINASTERIDE 5 MG TABLET PO (07:58)
[2021-01-14] MEDS: amLODIPine BESYLATE 5 MG TABLET 10 MG PO (07:58)
[2021-01-14] MEDS: PANTOPRAZOLE SODIUM IV 40 MG VIAL IV PUSH ×2 (07:59→20:43)
[2021-01-14 08:56] LABS: Glucose Point of Care 108 (65-105)
--- NOTE | 2021-01-14 09:16 | PCSTNOTE ---
Please refer to the Modified Barium Swallow Evaluation in the EMR.
--- NOTE | 2021-01-14 11:48 | PM.PNCARD ---
Progress Note: A&P Additional Plan 85-year-old man with known coronary disease previous bypass grafting and also mild aortic valve stenosis by echo and by exam. Patient was admitted with severe anemia with GI bleeding probably from gastritis. Troponin level paris significantly following this event. Vital signs are stable today. I am going to resume his metoprolol at his previous dosage of 25 mg b.i.d.. Galileo Medrano MD [facility] Subjective Date/time seen: Date of service: 01/14/21 11:48 Interval history: Follow-up visit in this 85-year-old man with: Coronary artery disease remote history of surgical revascularization, no recent cardiac instability. Patient found to have an elevated troponin level in the setting of severe anemia with upper GI bleeding. Endoscopic evaluation today demonstrates some gastritis and some colon polyps. Patient states he feels okay, better today. Reported by nursing he was refusing medications, chest x-ray but patient denies this refusing medications. Okay to restart antiplatelet therapy per GI. Patient denies chest pain, notes intermittent neck pain, back pain, side pain typically fleeting, sharp in nature improved with position change. No new issues overnight. Denies knowledge of recurrent bleeding. Reports by nursing. Apparently, patient considered transfer to [place] but has changed his mind. 01/14/2021: Patient has no cardiovascular complaints today. No chest pain breathing seems to be better. Patient was on moderate dose metoprolol at home does not look like that has been ordered in the hospital. Vital signs do not show any significant Pa arrhythmias or hypotension Exam Narrative: Exam Narrative: General: Thin elderly male sitting upright in bed mildly dyspneic with conversation no apparent distress, alert and oriented x2-3. Patient loses train of thought with tangential answers frequently, needs redirection. Comfortable, pleasant, and cooperative. Head: atraumatic, normocephalic Eyes: EOM intact, sclerae anicteric, conjunctivae unremarkable Ears/Nose: external inspection of ears and nose were grossly normal Mouth/Throat: oral mucosa pink and moist Neck: supple, normal range of motion, no jugular venous distention or carotid bruits, thyroid nonpalpable, trachea midline. Tunneled catheter right upper chest Cardiac: Regular rate and rhythm, normal S1-S2, late peaking systolic murmur crescendo decrescendo right sternal border, left sternal border Lungs: Diminished breath sounds diffusely, no clear rales or wheezes. Abdomen: Soft, nontender, nondistended, positive bowel sounds throughout. No appreciable hepatosplenomegaly, no rebound guarding or rigidity noted. Abdominal aorta nonpalpable, no appreciable bruits. Extremities: No edema, clubbing, and or cyanosis. Extremities warm and well perfused. Skin: Warm and dry without ecchymoses, rashes, and/or petechiae. Musculoskeletal: Muscle strength and tone intact throughout without obvious deformities. Healed median sternotomy scar Vascular: Carotid upstrokes 2+ bilaterally, radial pulses 2+ bilaterally, dorsalis pedis pulses 2+ bilaterally, posterior tibialis pulses palpable bilaterally. Neurologic: Cranial nerves 2-12 grossly intact, examination grossly nonfocal Pscyhiatric: Mood calm and appropriate. Const: General: cooperative, comfortable, no acute distress, alert and awake Nutritional Appearance: well nourished Orientation/consciousness: patient oriented x3 Other: elderly white male appears to be rather frail offers no cardiovascular complaints HENMT: Head: normal to inspection, normocephalic and atraumatic Ears: hearing grossly normal bilaterally General nose exam: Normal external nose present, Normal nares present and no nasal discharge noted Face and sinus: normal facial exam and no erythema Mouth: Yes dry mucous membranes, No drooling and No restricted motion Throat
[2021-01-14 12:23] LABS: Glucose Point of Care 188 (65-105)
--- NOTE | 2021-01-14 14:54 | PM.IMPN ---
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 Status: Inactive Assessment and Plan: History OF CABG, restart medication,can restart pts BP medications , PT/ OT to continue (2) Pacemaker: Code(s): Z95.0 - Presence of cardiac pacemaker Status: Inactive Assessment and Plan: History of Pacemaker, patients garment steamer is in [facility], pt has spoken to cardiology here. (3) Elevated troponin: Code(s): R77.8 - Other specified abnormalities of plasma proteins Status: Acute Assessment and Plan: Pt troponin is elevated restart plavix after long discussion on risks and benefits (4) Upper gastrointestinal bleeding: Code(s): K92.2 - Gastrointestinal hemorrhage, unspecified Status: Acute Assessment and Plan: Sp Colonscopy, GIrounding see recommendations (5) Anemia: Code(s): D64.9 - Anemia, unspecified Status: Acute Assessment and Plan: Hb is stable at 8 (6) Neck pain: Code(s): M54.2 - Cervicalgia Status: Acute Assessment and Plan: CT CHEST AND CT NECK ORDERED, XRay of l spine ordered for tomorrow pt refusing xray of lumbar spine, continue pain medications prn for chronic pain likely oa and spondylosis (7) CHF (congestive heart failure): Code(s): I50.9 - Heart failure, unspecified Status: Acute Assessment and Plan: Unable to add lasix bp is soft cardiology rounding rpt cxr tomorrow am (8) Pneumonia: Code(s): J18.9 - Pneumonia, unspecified organism Status: Acute Assessment and Plan: Continue IV cefepime Subjective Date/time seen: 01/14/21 14:54 Interval history: 85-year-old male who presents ER with right-sided chest pain. Pt troponin is high, Pt seen by cardiology long discussion about risks and benefits restarted on plavix now. Pt appears better today. Pt is on antibiotics from home ? skull base infection, Cxr shows possible pneumonia / chf, Bp is soft so unable to do much lasix. Review of Systems Review of Systems: All systems reviewed & are unremarkable except as noted in HPI and below Exam Const: General: other (elderly and frail ) HENMT: Head: normocephalic Eyes: Pupils: Equal, round and reactive pupils present Neck: Neck: supple Chest: Chest palpation & inspection: normal inspection of the chest Resp: Effort & Inspection: abnormal respiratory pattern and respiratory distress (tacyhpneic ) Auscultation: clear to auscultation bilaterally Cardio: Jugular venous distension: no JVD Rhythm: regular rhythm Heart sounds: S1 normal heart sound present and S2 normal heart sound present GI: Inspection: normal to inspection Auscultation: normal bowel sounds Back/Spine/Pelvis: Back: other (mid back pain ) Skin: General skin exam: normal color and dry skin Neuro: Cranial nerves: Yes CN's II-XII intact bilaterally and Yes Equal, round and reactive pupils present Cognition (Neuro): abnormal cognition (due to tiredness ) Speech: Other speech findings present (Neuro) (slow ) Extrem: General: other (Generailsed weakness bilaterally ) Psych: Appearance: grossly normal Mental Status: mental status grossly normal Objective Data Vital Signs Vital Signs: Vital Signs - 24 hr 01/13/21 15:51 01/13/21 16:00 01/13/21 18:00 Temperature 36.6 C Pulse Rate 68 70 66 Respiratory Rate 14 Blood Pressure 112/64 Pulse Oximetry 92 96 01/13/21 20:00 01/13/21 22:00 01/13/21 23:20 Temperature 36.1 C L 36.1 C L Pulse Rate 63 65 68 Respiratory Rate 16 16 Blood Pressure 122/54 L 131/58 L Pulse Oximetry 95 92 01/14/21 00:00 01/14/21 02:00 01/14/21 04:00 Temperature 36.1 C L Pulse Rate 65 69 71 Respiratory Rate 16 Blood Pressure 119/49 L Pulse Oximetry 93 92 01/14/21 06:00 01/14/21 08:00 01/14/21 08:28 Temperature 36.4 C L Pulse Rate 68 68 68 Respiratory Rate 22 H 18 Bloo
--- NOTE | 2021-01-14 15:52 | PM.PNNEP ---
Progress Note: A&P Assessment and Plan (1) LATASHA (acute kidney injury): Code(s): N17.9 - Acute kidney failure, unspecified Status: Acute Assessment and Plan: resolved likely due to urinary retention raymond catheter in place creatinine is now normal Urology following -- on finasteride and tamsulosin (2) GIB (gastrointestinal bleeding): Code(s): K92.2 - Gastrointestinal hemorrhage, unspecified Status: Acute Assessment and Plan: s/p PRBC transfusion H/H relatively stable at this time anemia studies with evidence of iron deficiency Gastroenterology following Not much else to add -- will continue to follow from a distance. Subjective Date/time seen: 01/14/21 15:52 Overall, the patient seems to be doing better today; no apparent distress noted; no issues or problems overnight or earlier this AM; resting comfortably at the time of my visit. Exam Narrative: Exam Narrative: General: Elderly male in NAD Heart: normal S1 and S2; no rub Lungs: clear anteriorly; decreased at bases Abdomen: soft, nontender, nondistended, positive bowel sounds Extremities: no cyanosis or clubbing; no edema Skin: warm and dry Objective Data Vital Signs Vital Signs: Vital Signs Temp Pulse Resp BP Pulse Ox 01/14/21 12:00 36.4 C L 83 22 H 96/51 L 91 01/14/21 10:00 79 01/14/21 08:28 68 18 94 01/14/21 08:00 36.4 C L 68 22 H 141/53 H 100 01/14/21 06:00 68 01/14/21 04:00 36.1 C L 71 16 119/49 L 92 01/14/21 02:00 69 01/14/21 00:00 65 93 01/13/21 23:20 36.1 C L 68 16 131/58 L 92 01/13/21 22:00 65 01/13/21 20:00 36.1 C L 63 16 122/54 L 95 01/13/21 18:00 66 Intake/Output Intake/Output: Intake & Output 01/11/21 01/12/21 01/13/21 01/14/21 23:59 23:59 23:59 23:59 Intake Total 1210 1450 1040 600 Output Total 1850 2450 1250 650 Balance -640 -1000 -210 -50 Meds/Results Medications: Active Medications Generic Name Dose Route Start Last Admin Trade Name Javidq PRN Reason Stop Dose Admin Acetaminophen/Codeine Phosphate 1 tab 01/11/21 12:39 Acetaminophen/Codeine (*Crx) 300/30 Mg Tablet PO Q4H PRN Pain Rated 4-6 Alteplase, Recombinant 2 mg 01/13/21 10:50 Alteplase 2 Mg Vial (Cathflo) IV PUSH ONCE PRN Line Occlusion Alteplase, Recombinant 2 mg 01/13/21 10:51 01/13/21 11:19 Alteplase 2 Mg Vial (Cathflo) IV PUSH 2 mg ONCE PRN Administration Line Occlusion Amlodipine Besylate 10 mg 01/14/21 09:00 01/14/21 07:58 Amlodipine Besylate 5 Mg Tablet PO 10 mg DAILY JOAO Administration Atorvastatin Calcium 20 mg 01/11/21 18:00 01/13/21 18:18 Atorvastatin 20 Mg Tablet PO 20 mg QPM JOAO Administration Clopidogrel Bisulfate 75 mg 01/13/21 09:00 01/14/21 07:58 Clopidogrel Bisulfate 75 Mg Tablet PO 75 mg QAM JOAO Administration Dextrose 12.5 gm 01/10/21 15:07 Dextrose 50% 25 Gm/50 Ml Syringe IV PUSH PRN PRN Hypoglycemia Protocol Finasteride 5 mg 01/12/21 09:00 01/14/21 07:58 Finasteride 5 Mg Tablet PO 5 mg QAM JOAO Administration Furosemide 20 mg 01/14/21 09:00 01/14/21 07:57 Furosemide 20 Mg Tablet PO 20 mg DAILY JOAO Administration Glucagon 1 mg 01/10/21 15:07 Glucagon For Inj 1 Mg Vial IM PRN PRN Hypoglycemia Protocol Glucose 15 gm 01/10/21 15:07 Glucose Oral Gel 15 Gm Of Glucse In 37.5 Gm Tube PO PRN PRN Hypoglycemia Protocol Dextrose 1,000 mls @ 100 mls/hr 01/10/21 15:07 Dextrose 5% 1,000 Ml IVPB PRN PRN Hypoglycemia Protocol Cefepime HCl 2 gm in 50 mls @ 100 mls/hr 01/14/21 18:00 Maxipime 2 Gm/D5w 50 Ml IVPB Q12HR JOAO Insulin Aspart 2 - 5 units 01/10/21 17:00 01/14/21 13:49 Insulin Aspart (*Bkc) 100 Units/Ml SUB-Q Not Given TIDWM JOAO Protocol Insulin Lispro Protam/Lispro Human 16 units 01/11/21 09:00
--- NOTE | 2021-01-14 17:00 | WPDGIPROGNO ---
Progress Note: A&P Assessment and Plan (1) Gastritis: Code(s): K29.70 - Gastritis, unspecified, without bleeding Status: Acute Assessment and Plan: erosive gastritis without signs of bleeding, colonoscopy unremarkable continue with ppi twice daily hb stable after blood transfusion he is back on plavix given elevated troponin, hb low but stable, no more signs of bleeding (2) Acute blood loss anemia: Code(s): D62 - Acute posthemorrhagic anemia Status: Acute Assessment and Plan: required blood transfusion monitor h/h, no signs of bleeding no changes (3) GIB (gastrointestinal bleeding): Code(s): K92.2 - Gastrointestinal hemorrhage, unspecified Status: Acute Assessment and Plan: on ppi, no more signs of bleeding (4) LATASHA (acute kidney injury): Code(s): N17.9 - Acute kidney failure, unspecified Status: Acute Assessment and Plan: monitor renal function, nephrology on board (5) CAD (coronary artery disease): Code(s): I25.10 - Atherosclerotic heart disease of zuni coronary artery without angina pectoris Status: Acute Assessment and Plan: evaluated by cardiology, on medical management Subjective Date/time seen: 01/14/21 17:00 Interval history: no new issues today Review of Systems Review of Systems: All systems reviewed & are unremarkable except as noted in HPI and below Exam Const: General: comfortable and no acute distress Other: frail elderly HENMT: Mouth: Yes dry mucous membranes Eyes: Sclera: sclerae normal Pupils: Equal, round and reactive pupils present Neck: Neck: supple and no JVD Resp: Effort & Inspection: normal respiratory effort Auscultation: clear to auscultation bilaterally Cardio: Rate: regular rate Rhythm: regular rhythm Heart sounds: Murmur heart sound present GI: GI Palp: Yes Soft to palpation and No Tenderness to palpation present (GI) Auscultation: normal bowel sounds Skin: General skin exam: normal color Neuro: Speech: normal speech Extrem: General: normal to inspection Psych: Affect: normal affect Objective Data Vital Signs Vital Signs: Vital Signs - 24 hr 01/13/21 18:00 01/13/21 20:00 01/13/21 22:00 Temperature 96.9 F L Pulse Rate 66 63 65 Respiratory Rate 16 Blood Pressure 122/54 L Pulse Oximetry 95 01/13/21 23:20 01/14/21 00:00 01/14/21 02:00 Temperature 97 F L Pulse Rate 68 65 69 Respiratory Rate 16 Blood Pressure 131/58 L Pulse Oximetry 92 93 01/14/21 04:00 01/14/21 06:00 01/14/21 08:00 Temperature 96.9 F L 97.5 F L Pulse Rate 71 68 68 Respiratory Rate 16 22 H Blood Pressure 119/49 L 141/53 H Pulse Oximetry 92 100 01/14/21 08:28 01/14/21 10:00 01/14/21 12:00 Temperature 97.5 F L Pulse Rate 68 79 83 Respiratory Rate 18 22 H Blood Pressure 96/51 L Pulse Oximetry 94 91 Intake/Output Intake/Output: Intake & Output 01/11/21 01/12/21 01/13/21 01/14/21 23:59 23:59 23:59 23:59 Intake Total 1210 1450 1040 600 Output Total 1850 2450 1250 650 Balance -640 -1000 -210 -50 Meds/Results Medications: Active Medications Generic Name Dose Route Start Last Admin Trade Name Freq PRN Reason Stop Dose Admin Acetaminophen/Codeine Phosphate 1 tab 01/11/21 12:39 Acetaminophen/Codeine (*Crx) 300/30 Mg Tablet PO Q4H PRN Pain Rated 4-6 Alteplase, Recombinant 2 mg 01/13/21 10:50 Alteplase 2 Mg Vial (Cathflo) IV PUSH ONCE PRN Line Occlusion Alteplase, Recombinant 2 mg 01/13/21 10:51 01/13/21 11:19 Alteplase 2 Mg Vial (Cathflo) IV PUSH 2 mg ONCE PRN Administration Line Occlusion Amlodipine Besylate 10 mg 01/14/21 09:00 01/14/21 07:58 Amlodipine Besylate 5 Mg Tablet PO 10 mg DAILY JOAO Administration Atorvastatin Calcium 20 mg 01/11/21 18:00 01/13/21 18:18 Atorvastatin 20 Mg Tablet PO 20 mg QPM JOAO Administration Clopidogrel Bisulfate 75 mg 01/13/21 09
[2021-01-14] MEDS: INSULIN ASPART (*BKC) 100 UNITS/ML SUB-Q (17:54)
[2021-01-14] MEDS: ATORVASTATIN 20 MG TABLET PO (17:59)
[2021-01-14 18:04] LABS: Glucose Point of Care 289 (65-105)
[2021-01-14] MEDS: METOPROLOL TARTRATE 25 MG TABLET PO (20:44)
[2021-01-14 20:46] LABS: Glucose Point of Care 163 (65-105)
[2021-01-15] VITALS (21 sets, daily range): BP systolic 101–125; BP diastolic 49–79; PULSE 62–79; RESP 16–22; TEMP 36.3–36.9; O2SAT 88–98
[2021-01-15] MEDS: CENTRAL LINE FLUSH 10 ML IV PUSH ×3 (05:15→20:09)
[2021-01-15 05:44] LABS: Basophils Absolute Auto 0.1 K/mm3 (0.0-0.1); Basophils Percent Auto 0.5 % (0.2-1.2); Eosinophils Absolute Auto 0.2 K/mm3 (0-0.3); Eosinophils Percent Auto 2.1 % (0-4.4); Hematocrit 26.6 % (42.0-52.0); Hemoglobin 8.8 g/dL (14.0-18.0); Immature Granulocyte Absolute 0.22 K/mm3 (0.00-0.031); Immature Granulocyte Percent A 2.1 % (0-0.5); Lymphocytes Absolute Auto 0.77 K/mm3 (0.9-3.2); Lymphocytes Percent Auto 7.4 % (18.3-44.2); Mean Corpuscular HGB Conc 33.1 g/dl (32-36); Mean Corpuscular Hemoglobin 30.1 pg (26-34); Mean Corpuscular Volume 91.1 fl (80-100); Mean Platelet Volume 11.1 fl (7.4-10.4); Monocytes Absolute Auto 0.9 K/mm3 (0.1-0.6); Monocytes Percent Auto 8.7 % (2.6-8.5); Neutrophils Absolute Auto 8.3 K/mm3 (1.3-6.7); Neutrophils Percent Auto 79.2 % (45.5-73.1); Nucleated Red Blood Cells Absolute Auto 0.1 K/mm3 (0.0-0.012); Nucleated Red Blood Cells Perc 0.7 % (0.0-0.2); Platelet Count Result 174 k/mm3 (150-375); Red Blood Count 2.92 M/mm3 (4.6-6.20); Red Cell Distribution Width 15.6 % (11.5-14.5); White Blood Count 10.5 K/mm3 (4.5-10.0)
[2021-01-15 05:59] LABS: Anion Gap 5 mmol/L (8-16); Blood Urea Nitrogen 29 mg/dL (9-20); Calcium 8.3 mg/dL (8.4-10.2); Carbon Dioxide 29 mmol/L (22-30); Chloride 103 mmol/L (98-107); Estimated CRCL calculation 48 ml/min; Estimated Glomerular Filt Rate > 60; Glucose 145 mg/dL (75-110); Potassium 4.3 mmol/L (3.4-5.0); Sodium 137 mmol/L (137-145)
[2021-01-15 08:58] LABS: Glucose Point of Care 153 (65-105)
--- NOTE | 2021-01-15 10:26 | WPDCDIQUERY2 ---
CDI Query Clarification Request 1) -On 01/12 nursing has documented sats <80% with RR 24-26 and 15L O2 applied that was changed to 8L HFNL - Pt weaned down to O2 at 4L currently -Acute respiratory failure documented by cardiology -No mention by hospitalist Please clarify if acute respiratory failure was ruled in or ruled out. 2) -01/12 troponins 13.700, 13.300, 13.700. -Documentation by professor of political science that back pain may be anginal equivalent given known underlying CAD. Repeat EKG and echo ordered. -NSTEMI documented by cardiology -Elevated troponin documented by hospitalist Please clarify if NSTEMI was ruled in or ruled out. <Elli Berry RN - Last Filed: 01/15/21 10:36>
[2021-01-15] MEDS: TAMSULOSIN HCL 0.4 MG CAPSULE PO (10:46)
[2021-01-15] MEDS: FUROSEMIDE 20 MG TABLET PO (10:46)
[2021-01-15] MEDS: amLODIPine BESYLATE 5 MG TABLET 10 MG PO (10:46)
[2021-01-15] MEDS: METOPROLOL TARTRATE 25 MG TABLET PO ×2 (10:46→20:04)
[2021-01-15] MEDS: CLOPIDOGREL BISULFATE 75 MG TABLET PO (10:46)
[2021-01-15] MEDS: ISOSORBIDE MONONITRATE 60 MG TAB.ER.24H PO (10:46)
[2021-01-15] MEDS: FINASTERIDE 5 MG TABLET PO (10:47)
[2021-01-15 12:46] LABS: Glucose Point of Care 180 (65-105)
--- NOTE | 2021-01-15 13:42 | HOMEO2EVAL ---
Home Oxygen Evaluation RC: Home Oxygen (O2) Evaluation Start: 01/15/21 10:40 Freq: ONCE Status: Active Protocol: RPE Activity Type Activity Date Activity User E-Sign Co-Sign Detail Recorded Client Recorded Date Recorded By Document 01/15/21 13:20 TOMMY [email or web address] 01/15/21 13:42 TOMMY Document 01/15/21 13:25 TOMMY [email or web address] 01/15/21 13:42 TOMMY Document 01/15/21 13:35 TOMMY [email or web address] 01/15/21 13:42 TOMMY 01/15/21 01/15/21 01/15/21 13:20 13:25 13:35 Home O2 Evaluation Test Phase Resting Exercise Resting Oxygen Delivery Room Air Room Air Room Air Pulse Oximetry (90-100 %) 95 91 95 Pulse Rate (60-100 beats/min) 72 79 70 Home Oxygen Evaluation Comments wheeled walker no home o2 to door and needed at this back to bed time Treatment Charges O2 Evaluation - Inpatient
--- NOTE | 2021-01-15 13:42 | PCRCNOTE ---
Home O2 eval completed. No home O2 needed at this time. RN notified.
--- NOTE | 2021-01-15 15:47 | PCOTNOTE ---
Attempted to see pt 2x for OT treatment session, however, pt declined to participate each time. Pt states that he can do all of those things (e.g. grooming, oral care, etc.) at home and does not understand the need to do perform it here. Pt was encouraged to participate in other ADLs, therapeutic activities, and/or bue strengthening, however, pt continued to decline each task. Pt repeatedly stated that his only concern is to go home. Pt was educated 2x the importance and benefits of participation in OT services for increase independence with daily occupations. Will continue per POC duration/frequency tomorrow.
[2021-01-15] MEDS: ATORVASTATIN 20 MG TABLET PO (16:59)
--- NOTE | 2021-01-15 17:00 | PM.IMPN ---
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 Status: Inactive Assessment and Plan: History OF CABG, restart medication,can restart pts BP medications , PT/ OT to continue 01/15/21 17:00 Patient is a 85-year-old male with history of CABG presented emergency department with a chest is found to have significant elevated tropes patient was seen by stocklayer recommended cardiac catheterization to further evaluate however patient deferred, and his chest pain has resolved, today patient insisting of going home, patient work with physical therapy and is safe to go home and are requiring any oxygen, patient has a Kimble will remove do the voiding will discharge the patient today of tomorrow, I spoke with the patient's daughter and she is agreement with the plan (2) Pacemaker: Code(s): Z95.0 - Presence of cardiac pacemaker Status: Inactive Assessment and Plan: History of Pacemaker, patients stocklayer is in [facility], pt has spoken to cardiology here. (3) Elevated troponin: Code(s): R77.8 - Other specified abnormalities of plasma proteins Status: Acute Assessment and Plan: Pt troponin is elevated restart plavix after long discussion on risks and benefits (4) Upper gastrointestinal bleeding: Code(s): K92.2 - Gastrointestinal hemorrhage, unspecified Status: Acute Assessment and Plan: Sp Colonscopy, GIrounding see recommendations (5) Anemia: Code(s): D64.9 - Anemia, unspecified Status: Acute Assessment and Plan: Hb is stable at 8 (6) Neck pain: Code(s): M54.2 - Cervicalgia Status: Acute Assessment and Plan: CT CHEST AND CT NECK ORDERED, XRay of l spine ordered for tomorrow pt refusing xray of lumbar spine, continue pain medications prn for chronic pain likely oa and spondylosis (7) CHF (congestive heart failure): Code(s): I50.9 - Heart failure, unspecified Status: Acute Assessment and Plan: Unable to add lasix bp is soft cardiology rounding rpt cxr tomorrow am (8) Pneumonia: Code(s): J18.9 - Pneumonia, unspecified organism Status: Acute Assessment and Plan: Continue IV cefepime Subjective Date/time seen: 01/15/21 17:00 Patient is a 85-year-old male with history of CABG presented emergency department with a chest is found to have significant elevated tropes patient was seen by stocklayer recommended cardiac catheterization to further evaluate however patient deferred, and his chest pain has resolved, today patient insisting of going home, patient work with physical therapy and is safe to go home and are requiring any oxygen, patient has a Kimble will remove do the voiding will discharge the patient today of tomorrow, I spoke with the patient's daughter and she is agreement with the plan Review of Systems Review of Systems: All systems reviewed & are unremarkable except as noted in HPI and below Exam Narrative: Exam Narrative: Elderly frail Patient is comfortable, NAD HEENT: eyes are clear and none icteric LUNGS: Bilateral fair entry with rhonchi HEART: RR S1S2 ABD: BS+, Soft and nontender Lower extremities: no edema SKIN: nonjaundiced Neuro: grossly intact. Objective Data Vital Signs Vital Signs: Vital Signs - 24 hr 01/14/21 18:00 01/14/21 20:00 01/14/21 20:44 Temperature 98 F Pulse Rate 68 64 68 Respiratory Rate 16 Blood Pressure 117/55 L Pulse Oximetry 92 01/14/21 22:00 01/15/21 00:00 01/15/21 02:00 Temperature 98.3 F Pulse Rate 66 62 66 Respiratory Rate 18 Blood Pressure 123/56 L Pulse Oximetry 90 01/15/21 04:00 01/15/21 06:00 01/15/21 08:00 Temperature 97.3 F L 97.7 F Pulse Rate 69 71 69 Respiratory Rate 18 16 Blood Pressure 125/56 L 121/54 L Pulse Oximetry 93 92 01/15/21 08:21 01/15/21 09:30 01/15/21 10:00 Temperature Pulse Rate 67 Respir
[2021-01-15 17:22] LABS: Glucose Point of Care 118 (65-105)
[2021-01-15 20:00] LABS: Glucose Point of Care 132 (65-105)
[2021-01-15] MEDS: PANTOPRAZOLE SODIUM IV 40 MG VIAL IV PUSH (20:13)
[2021-01-16] VITALS (9 sets, daily range): BP systolic 117–135; BP diastolic 38–70; PULSE 64–81; RESP 17–22; TEMP 36.4–36.6; O2SAT 90–98
[2021-01-16 03:47] LABS: Hematocrit 27.1 % (42.0-52.0); Hemoglobin 9.1 g/dL (14.0-18.0); Mean Corpuscular HGB Conc 33.6 g/dl (32-36); Mean Corpuscular Volume 92.2 fl (80-100); Mean Platelet Volume 10.5 fl (7.4-10.4); Platelet Count Result 196 k/mm3 (150-375); Red Blood Count 2.94 M/mm3 (4.6-6.20); Red Cell Distribution Width 15.9 % (11.5-14.5)
[2021-01-16 04:01] LABS: Anion Gap 4 mmol/L (8-16); Blood Urea Nitrogen 26 mg/dL (9-20); Calcium 8.5 mg/dL (8.4-10.2); Carbon Dioxide 32 mmol/L (22-30); Chloride 102 mmol/L (98-107); Estimated CRCL calculation 48 ml/min; Estimated Glomerular Filt Rate > 60; Glucose 126 mg/dL (75-110); Magnesium 1.9 mg/dL (1.6-2.3); Potassium 4.2 mmol/L (3.4-5.0); Sodium 138 mmol/L (137-145)
[2021-01-16] MEDS: CENTRAL LINE FLUSH 10 ML IV PUSH (05:12)
[2021-01-16 09:17] LABS: Glucose Point of Care 113 (65-105)
[2021-01-16] MEDS: METOPROLOL TARTRATE 25 MG TABLET PO (09:33)
[2021-01-16] MEDS: PANTOPRAZOLE SODIUM IV 40 MG VIAL IV PUSH (09:33)
[2021-01-16] MEDS: ISOSORBIDE MONONITRATE 60 MG TAB.ER.24H PO (09:33)
[2021-01-16] MEDS: amLODIPine BESYLATE 5 MG TABLET 10 MG PO (09:33)
[2021-01-16] MEDS: FINASTERIDE 5 MG TABLET PO (09:33)
[2021-01-16] MEDS: TAMSULOSIN HCL 0.4 MG CAPSULE PO (09:34)
[2021-01-16] MEDS: FUROSEMIDE 20 MG TABLET PO (09:34)
[2021-01-16] MEDS: CLOPIDOGREL BISULFATE 75 MG TABLET PO (09:34)
--- NOTE | 2021-01-16 12:03 | PM.DS ---
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 Status: Inactive Assessment and Plan: History OF CABG, restart medication,can restart pts BP medications , PT/ OT to continue 01/15/21 17:00 Patient is a 85-year-old male with history of CABG presented emergency department with a chest is found to have significant elevated tropes patient was seen by sheeter waxer operator recommended cardiac catheterization to further evaluate however patient deferred, and his chest pain has resolved, today patient insisting of going home, patient work with physical therapy and is safe to go home and are requiring any oxygen, patient has a Kimble will remove do the voiding will discharge the patient today of tomorrow, I spoke with the patient's daughter and she is agreement with the plan (2) Pacemaker: Code(s): Z95.0 - Presence of cardiac pacemaker Status: Inactive Assessment and Plan: History of Pacemaker, patients sheeter waxer operator is in [facility], pt has spoken to cardiology here. (3) Elevated troponin: Code(s): R77.8 - Other specified abnormalities of plasma proteins Status: Acute Assessment and Plan: Pt troponin is elevated restart plavix after long discussion on risks and benefits (4) Upper gastrointestinal bleeding: Code(s): K92.2 - Gastrointestinal hemorrhage, unspecified Status: Acute Assessment and Plan: Sp Colonscopy, GIrounding see recommendations (5) Anemia: Code(s): D64.9 - Anemia, unspecified Status: Acute Assessment and Plan: Hb is stable at 8 (6) Neck pain: Code(s): M54.2 - Cervicalgia Status: Acute Assessment and Plan: CT CHEST AND CT NECK ORDERED, XRay of l spine ordered for tomorrow pt refusing xray of lumbar spine, continue pain medications prn for chronic pain likely oa and spondylosis (7) CHF (congestive heart failure): Code(s): I50.9 - Heart failure, unspecified Status: Acute Assessment and Plan: Unable to add lasix bp is soft cardiology rounding rpt cxr tomorrow am (8) Pneumonia: Code(s): J18.9 - Pneumonia, unspecified organism Status: Acute Assessment and Plan: Continue IV cefepime DS: Summary Hospital Course Reason for hospitalization: 85-year-old male who presents ER with right-sided chest pain. Poor historian explains to be about pain his right shoulder and abdomen, pt is found to be severe anemia hb is 5 on admission, pt has been having rectal bleeding. Pt is going for colonscopy under GI Pt has history of chronic right ear infection. He currently has a central line for cefepime fusions he receives at home. Patient has history of CABG and sees Dr. Linares at [facility]. Pt has history of pacemaker, DM amd HTN. Pt prefers to stay in [place] than go to [facility]. Pt is sp 2 units of blood, Hb has improved to 7. Pts Bp still slightly low pt is on iv fluids, Iv protonix sp blood transfusion. Pt to hold his ASA and plavix for now. Pt had some shoulder pains and elevated troponin cardiology was consulted. see note. Chief Complaint: Chest pain Hospital Course: Patient is a 85-year-old male with history of CABG presented emergency department with a chest is found to have significant elevated tropes patient was seen by sheeter waxer operator recommended cardiac catheterization to further evaluate however patient deferred, and his chest pain has resolved, today patient insisting of going home, patient work with physical therapy and is safe to go home and are not requiring any oxygen, patient has a Kimble will remove do the voiding will discharge the patient today of tomorrow, I spoke with the patient's daughter and she is agreement with the plan Patient is clinically stable, will discharge patient today. Status at Discharge Functional status at dischar
[2021-01-16 12:41] LABS: Glucose Point of Care 168 (65-105)
--- NOTE | 2021-01-16 15:41 | PCSTNOTE ---
Therapist presented daughter with safe swallowing strategies and guidelines along with information concerning appropriate use of thickener. Daughter voiced good understanding of recommendations. Patient was asleep and unable to participate.
== END 2021-01-16 16:20 | disposition home health service (06) | DRG 377 ==
LOC: ANHED 06:44 → ANHIMU 06:55
PROVIDERS: Family Medicine; Internal Medicine Gastroenterology; Internal Medicine Nephrology; Admitting Provider Internal Medicine; Emergency Provider Emergency Medicine; PCP Internal Medicine; Visit Provider Family Medicine
PROC: 0DJ08ZZ Inspection of Upper Intestinal Tract, Via Natural or Artificial Opening Endoscopic (ICD-10-PCS; CPT 43235; principal; 2021-01-11 14:15)
DX: K29.01 Acute gastritis with bleeding (principal); J18.9 Pneumonia, unspecified organism; I21.A1 Myocardial infarction type 2; I50.33 Acute on chronic diastolic (congestive) heart failure; D62 Acute posthemorrhagic anemia; N17.9 Acute kidney failure, unspecified; I11.0 Hypertensive heart disease with heart failure; K63.5 Polyp of colon; K64.8 Other hemorrhoids; E11.9 Type 2 diabetes mellitus without complications; I25.10 Atherosclerotic heart disease of native coronary artery without angina pectoris; M54.2 Cervicalgia; H66.90 Otitis media, unspecified, unspecified ear; I35.0 Nonrheumatic aortic (valve) stenosis; N40.1 Benign prostatic hyperplasia with lower urinary tract symptoms; N39.490 Overflow incontinence; N39.41 Urge incontinence; M19.90 Unspecified osteoarthritis, unspecified site; M47.9 Spondylosis, unspecified; Z79.02 Long term (current) use of antithrombotics/antiplatelets; Z95.1 Presence of aortocoronary bypass graft; Z95.0 Presence of cardiac pacemaker; Z79.82 Long term (current) use of aspirin
CPT/HCPCS: 36415; 36430; 71045; 71250; 72100; 72125; 76775; 80048; 80053; 80069; 81001; 82550; 82570; 82728; 82948; 83540; 83550; 83735; 83883; 84156; 84300; 84484; 85014; 85018; 85025; 85027; 85610; 85652; 85730; 85999; 86850; 86900; 86901; 86923; 88305; 92526; 92610; 92611; 93005; 93306; 94618; 96361; 96374; 96375; 97110; 97116; 97161; 97165; 97530; 97535; 99285; A9270; C9113; G0378; J0131; J0171; J0692; J1815; J1940; J2270; J2405; J2704; J2997; J3010; J7030; J7040; J7050; J7060; J7120; P9016